=== PATIENT | female | born 1940 | race Caucasian/White ===

== ENCOUNTER 2017-06-20 16:03 | Emergency (ER) | payer MEDICARE, OTHER ==
[2017-06-20] MEDS ORDERED: Famotidine 20 MG/2 ML SDV IVPUSH ONE (16:21)
[2017-06-20] MEDS ORDERED: Lactated Ringers 1,000 ML IV ONE (16:21)
[2017-06-20] MEDS ORDERED: Ondansetron 4 MG/2 ML SDV IVPUSH ONE (16:21)
[2017-06-20] MEDS ORDERED: Pantoprazole 40 MG Vial IVPUSH ONE (16:21)
[2017-06-20 16:50] LABS: CHLORIDE,CL 105 mmol/L (98-107); SODIUM,NA 140 mmol/L (136-145)
[2017-06-20] MEDS: Sodium Chloride 0.9% 10 ML Syringe FLUSH PRN ×2 (16:54→17:26)
[2017-06-20] MEDS ORDERED: Ketorolac 30 MG/ML SDV IVPUSH ONE (17:03)
[2017-06-20] MEDS ORDERED: Tamsulosin 0.4 MG Cap.ER PO ONE (17:04)
--- NOTE | 2017-06-20 17:38 | EDM.PDOC ---
ED HPI GENERAL MEDICAL PROBLEM - General Chief Complaint: General Stated Complaint: back and flank bilat Time Seen by Provider: 06/20/17 16:05 Source of Information: Reports: Patient, Family ([id number]), Old Records ( [facility] chart/EMR) History Limitations: Reports: No Limitations - History of Present Illness INITIAL COMMENTS - FREE TEXT/NARRATIVE: Patient was brought to the emergency room via private automobile by her daughter -in-law for evaluation of 06/25 colic type symptoms, which started at noon today. Her symptoms are similar to previous episodes of her urolithiasis with sharp right CVA spasms radiating to the right inguinal region. Symptoms are associated with some mild nausea but no emesis or diaphoresis at this point. Patient did have some cheese and ham at lunch today at time of onset of the above symptoms, however no fatty food intolerance in the past. She did have a normal bowel movement earlier today. The patient has had some mild increased urinary frequency but no gross hematuria, dysuria, or other UTI symptoms. The patient denies any chest pain/pressure, heart flutter, dizziness, orthostasis, orthopnea, diaphoresis, paresthesias, recent decreased exercise tolerance, or any other anginal-type symptoms. The patient also denies any recent fever, cough , wheezing, dyspnea, etc.. No history of recent headaches, visual changes, diplopia, change in mental status, or other change in neurological status. She denies any medication noncompliance Onset: Today, Sudden Onset Date: 06/20/17 Onset Time: 12:00 Duration: Colic, Improving (To 01/23 on arrival) Location: Reports: Abdomen, Radiates to (Right inguinal region as above). Denies: Head, Face, Neck, Chest, Back, Pelvis, Upper Extremity, Left, Upper Extremity, Right, Lower Extremity, Left, Lower Extremity, Right Quality: Reports: Same as Previous Episode, Sharp, Stabbing Severity: Severe Improves with: Reports: None Worsens with: Reports: None Context: Reports: Other (As above) Associated Symptoms: Reports: Nausea/Vomiting (No emesis). 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 (see below) (None) Bilateral Flank Pain Score (Numeric/FACES): 5 (Mostly right CVA as above) - Related Data Allergies Allergy/AdvReac Type Severity Reaction Status Date / Time amoxicillin [From Augmentin] Allergy Nausea and Verified 06/20/17 17:48 Vomiting clavulanic acid Allergy Nausea and Verified 06/20/17 17:48 [From Augmentin] Vomiting Home Meds: Home Meds Albuterol [Proventil HFA] 2 puff INH Q4H PRN 06/20/17 [History] Diltiazem [Cardizem CD] 180 mg PO QPM #0 06/20/17 [Rx] Fluticasone Propionate [Flovent HFA 100 mcg] 2 puff IH BID 06/20/17 [History] Furosemide [Lasix] 40 mg PO DAILY PRN 06/20/17 [History] Losartan [Cozaar] 50 mg PO QAM #0 06/20/17 [Rx] Omeprazole Magnesium [Prilosec Otc] 40 mg PO DAILY 06/20/17 [History] Past Medical History HEENT History: Reports: Allergic Rhinitis, Cataract, Hard of Hearing, Impaired Vision, Other (See Below). Denies: Glaucoma, Macular Degeneration, Retinal Detachment Other HEENT History: She wears glasses, bilateral presbycusis with no current therapy Cardiovascular History: Reports: Heart Murmur, High Cholesterol, Hypertension. Denies: Afib, Aneurysm, Arrhythmia, Blood Clots/VTE/DVT, CAD, FL, PVD, Syncope Other Cardiovascular History: Aortic valve stenosis and mitral valve insufficiency by clinical exam, obesity with hyperlipidemia not currently treated with medications, dependent edema Respiratory History: Reports: Asthma, Bronchitis, Recurrent, COPD, Intubation, Previous. Denies: PE, Pneumonia, Recurrent, Pneumothorax, Sleep Apnea Gastrointestinal History: Reports: Cholelithiasis, Chronic Constipation, Colon Polyp, Diverticulosis, GERD, Other (See Below). Denies: Celiac Disease, Chronic Diarrhea, Fecal Incontinence, Gastritis, GI Bleed, Hepatitis, Inflammatory Bowel Disease, Irritable Bowel Syndrome, Jaundice, Pancreatitis, PUD Other Gastrointestinal History: History of recurrent colonic polyps including at time of last colonoscopy in February 2017 with unknown type of polyps present, history of colon cancer as below, resolved constipation after her partial colectomy Genitourinary History: Reports: Renal Calculus, Other (See Below). Denies: Acute Renal Failure, Chronic Renal Insuffiency, STD, Urinary Incontinence, UTI, Recurrent Other Genitourinary History: Recurrent urolithiasis side unknown however spontaneous passage with last right-sided 6 mm urolithiasis on 03/22/11 with secondary hydronephrosis and spontaneous passage, left-sided renal pelvic stone and bilateral benign renal cysts by CT scan in October 2016 FURNITURE SANDER History: Reports: . Denies: Dysfunctional Uterine Bleeding, Endometriosis, Fibroids, Spontaneous : 3 Para: 3 (Full term without complications during pregnancies or deliveries) LMP (Approximate): Menopausal (At about age 41) Musculoskeletal History: Reports: Arthritis, Back Pain, Chronic, Fracture, Neck Pain, Chronic, Osteoarthritis, Osteoporosis, Other (See Below). Denies: Amputation, Gout, RA, SLE Other Musculoskeletal History: C2 vertebral body fracture with C5 spinal process fracture secondary to trauma on 04/21/13, C5 spinal stenosis cervical spondylolisthesis Neurological History: Reports: None. Denies: Alzheimers Disease, Cerebral Aneurysms, CVA, Headaches, Chronic, Head Trauma, Migraines, MS, Neuropathy, Peripheral, Parkinson's, Seizure, TIA Psychiatric History: Reports: None. Denies: Abuse, Victim of, ADD, ADHD, Addiction, Anxiety, Depression, Psych Hospitalization(s), PTSD, Suicide Attempt , Suicidal Ideation Endocrine/Metabolic History: Reports: Obesity/BMI 30+, Osteoporosis. Denies: Diabetes, Type I, Hypothyroidism, IDDM Hematologic History: Reports: Anemia, Iron Deficiency. Denies: Blood Transfusion(s) Immunologic History: Reports: None. Denies: AIDS, HIV, SLE Oncologic (Cancer) History: Reports: Colon, Renal, Other (See Below). Denies: Basal Cell Carcinoma, Cervix, Hodgkin's Lymphoma, Leukemia, Lymphoma, Malignant Melanoma, Metastatic, Non-Hodgkin's Lymphoma, Squamous Cell Carcinoma, Uterine Other Oncologic History: Colon cancer in 2006 with partial colectomy but no radiation or chemotherapy Dermatologic History: Reports: None, Eczema. Denies: Psoriasis, Venous Stasis Dermatitis - Infectious Disease History Infectious Disease History: Reports: Chicken Pox, Mumps, Pertussis (Whooping Cough). Denies: C-Difficile, Measles, Meningitis, Mononucleosis, MRSA, Rubella , Scarlet Fever, Shingles, TB, VRE - Past Surgical History Head Surgeries/Procedures: Reports: None HEENT Surgical History: Reports: Cataract Surgery, Oral Surgery, Other (See Below). Denies: Adenoidectomy, Eye Surgery, Laser Surgery, LASIK, Myringotomy w Tube(s), Naso-Sinus Surgery, Tonsillectomy Other HEENT Surgeries/Procedures: Bilateral cataract surgery in about 2006, complete teeth extraction with complete upper and lower dentures Cardiovascular Surgical History: Reports: None. Denies: Varicose, Vascular Surgery Respiratory Surgical History: Reports: None. Denies: Thoracentesis GI Surgical History: Reports: Colon, Colonoscopy, Polypectomy, Other (See Below) . Denies: Appendectomy, Cholecystectomy, EGD, Hernia, Abdominal, Hernia, Inguinal, Hernia Repair/Other Other GI Surgeries/Procedures: Last colonoscopy in February 2017 with multiple polypectomies at that time, partial colectomy in 2012 secondary to colon cancer side unknown Female Surgical History: Reports: Other (See Below). Denies: Breast Biopsy, Section, D&C, Hysterectomy, Oophorectomy, Salpingo-Oophorectomy, Tubal Ligation Other Female Surgeries/Procedures: Cryotherapy of probable small left renal cancer lesion in 2014 Endocrine Surgical History: Reports: None. Denies: Thyroid Biopsy Neurological Surgical History: Reports: None. Denies: C-Spine, Discectomy, Laminectomy, Lumbar Spine, Spinal Fusion, Vertebroplasty Musculoskeletal Surgical History: Denies: Arthroscopic Procedure, Carpal Tunnel , Ganglion Cyst, Joint Replacement, Knee Replacement, ORIF, Shoulder Surgery Oncologic Surgical History: Reports: Other (See Below) Other Oncologic Surgeries/Procedures: As above Dermatological Surgical History: Reports: None - Past Imaging History Past Imaging History: Reports: CAT Scan (CT of the abdomen and pelvis with contrast in October 2016, CT of the C-spine on 04/21/13, CT of the abdomen and pelvis on 03/22/11 with stone protocol), DEXA Scan (04/18/12) Social & Family History - Tobacco Use Smoking Status *Q: Never Smoker Tobacco Use Within Last Twelve Months: No Used Tobacco, but Quit: No Smoking Cessation Information Provided To Patient: No Second Hand Smoke Exposure: No Second Hand Smoke Education Provided: No - Caffeine Use Caffeine Use: Reports: Coffee (3 cups per day), Soda (3 sodas per week). Denies : Energy Drinks, Tea - Alcohol Use Alcohol Use History: Yes Days Per Week of Alcohol Use: 0 (No previous DWIs, problems with alcohol abuse, etc.) Number of Drinks Per Day: 1 (Usually wine for holidays) Total Drinks Per Week: 0 Alcohol Use Frequency: Socially - Recreational Drug Use Recreational Drug Use: No Drug Use in Last 12 Months: No Recreational Drug Type: Denies: Amphetamines (Speed), Cocaine, Heroin, Inhalants (Glues, Solvents, Aerosols), LSD (Acid), Marijuana/Hashish, Methamphetamine, Morphine - Living Situation & Occupation Living situation: Reports: (1965, 2 children living), with Family ( ) Occupation: Employed (Part-time teacher) ED ROS GENERAL - Review of Systems Review Of Systems: See Below Constitutional: Denies: Fever, Malaise, Weakness, Fatigue, Night Sweats, Diaphoresis, Decreased Appetite, Weight Loss, Weight Gain HEENT: Reports: Glasses, Hearing Loss (Chronic). Denies: Ear Pain, Eye Discharge, Eye Pain, Rhinitis, Throat Pain, Throat Swelling, Vertigo, Vision Change Respiratory: Reports: No Symptoms. Denies: Shortness of Breath, Wheezing, Pleuritic Chest Pain, Cough Cardiovascular: Reports: No Symptoms. Denies: Chest Pain, Blood Pressure Problem, Claudication, Edema, Lightheadedness, Orthopnea, Palpitations, PND, Syncope Endocrine: Reports: No Symptoms. Denies: Fatigue GI/Abdominal: Reports: Abdominal Pain (Colic as above), Nausea. Denies: Anorexia, Black Stool, Bloody Stool, Constipation, Diarrhea, Decreased Appetite , Difficulty Swallowing, Distension, Flatus, Hematemesis, Hematochezia, Melena, Mucous in Stool, Stool Incontinence, Vomiting : Reports: Frequency, Pain (Colic as above radiating into the right inguinal region). Denies: Discharge, Dysuria, Flank Pain, Hematuria, Incontinence, Urgency, Urinary Retention Musculoskeletal: Reports: No Symptoms. Denies: Neck Pain, Shoulder Pain, Arm Pain, Back Pain, Leg Pain Skin: Reports: No Symptoms. Denies: Jaundice, Pallor, Diaphoresis, Bruising, Rash, Wound Neurological: Reports: No Symptoms. Denies: Confusion, Dizziness, Numbness, Paresthesia, Syncope, Tingling, Weakness Psychiatric: Reports: No Symptoms. Denies: Agitation, Anxiety, Confusion, Depression Hematologic/Lymphatic: Reports: No Symptoms Immunologic: Reports: No Symptoms ED EXAM, GENERAL - Physical Exam Exam: See Below Exam Limited By: No Limitations General Appearance: Alert, WD/WN, No Apparent Distress Eye Exam: Bilateral Eye: EOMI, Normal Inspection (No nystagmus), PERRL Ears: Normal External Exam, Normal Canal, Normal TMs, Hearing Loss (Moderate bilateral presbycusis). No: Hearing Grossly Normal Nose: Normal Inspection, Normal Mucosa, No Blood Throat/Mouth: Normal Inspection, Normal Lips, Normal Gums, Normal Oropharynx, Normal Voice, No Airway Compromise. No: Normal Teeth (Complete dentures uppers and lowers), Dysphagia, Perioral Cyanosis Head: Atraumatic, Normocephalic. No: Facial Swelling, Facial Tenderness, Sinus Tenderness Neck: Normal Inspection, Supple, Non-Tender, Full Range of Motion, Carotid Bruit (Mild bilateral carotid bruits versus transmitted heart sounds). No: Lymphadenopathy (L), Lymphadenopathy (R), Thyromegaly Respiratory/Chest: No Respiratory Distress, Lungs Clear, Normal Breath Sounds, No Accessory Muscle Use, Chest Non-Tender. No: Pleural Rub, Retractions Cardiovascular: Normal Peripheral Pulses, Regular Rate, Rhythm, No Edema, No Gallop, No JVD, No Rub, Systolic Murmur (2/6 BETTYE of the aortic and mitral valves ). No: Gallop/S3, Gallop/S4, Friction Rub Peripheral Pulses: 2+: Radial (L), Radial (R), Dorsalis Pedis (L), Dorsalis Pedis (R) GI/Abdominal: Normal Bowel Sounds, Soft, Non-Tender, No Organomegaly, No Distention, No Abnormal Bruit, No Mass, Pelvis Stable, Other (Obese). No: Guarding, Rebound (Female) Exam: Deferred Rectal (Female) Exam: Normal Exam, Normal Rectal Tone, Heme - Stool, Hemorrhoids. No: Tenderness (No Hieu space tenderness) Back Exam: Normal Inspection, Full Range of Motion. No: CVA Tenderness (L), CVA Tenderness (R), Muscle Spasm, Paraspinal Tenderness Extremities: Normal Inspection, Normal Range of Motion, Non-Tender, No Pedal Edema, Normal Capillary Refill. No: Kerry's Sign Neurological: Alert, Oriented, CN II-XII Intact, Normal Cognition, Normal Gait, Normal Reflexes (Negative Babinski's), No Motor/Sensory Deficits Psychiatric: Normal Affect, Normal Mood Skin Exam: Warm, Dry, Intact, Normal Color, No Rash. No: Diaphoretic, Ecchymosis, Jaundice, Petechiae, Wound/Incision Lymphatic: No Adenopathy Course - Vital Signs Last Recorded V/S: Last Vital Signs Temp 36.7 C 06/20/17 16:20 Pulse 69 06/20/17 18:30 Resp 20 06/20/17 16:20 BP 166/67 H 06/20/17 18:30 Pulse Ox 98 06/20/17 16:20 Vital Signs - 24 hr 06/20/17 06/20/17 06/20/17 16:20 16:43 16:49 Temperature [ 36.7 C Oral] Pulse, 74 73 Peripheral [ Left Brachial] Respiratory 20 Rate Blood Pressure 220/79 H 186/63 H 188/67 H [Left Upper Arm ] O2 Sat by Pulse 98 Oximetry 06/20/17 06/20/17 06/20/17 17:21 17:40 18:04 Temperature [ Oral] Pulse, 71 Peripheral [ Left Brachial] Respiratory Rate Blood Pressure 170/81 H 186/69 H 172/63 H [Left Upper Arm ] O2 Sat by Pulse Oximetry 06/20/17 06/20/17 18:15 18:30 Temperature [ Oral] Pulse, 69 Peripheral [ Left Brachial] Respiratory Rate Blood Pressure 163/70 H 166/67 H [Left Upper Arm ] O2 Sat by Pulse Oximetry - Orders/Labs/Meds Orders: Active Orders 24 hr Category Date Time Status Peripheral IV Care [RC] . DIRECTED Care 06/20/17 16:21 Active Nothing Per Oral Diet [DIET] Diet 06/20/17 Breakfast Active Abdomen Pelvis wo Cont [CT] Stat Exams 06/20/17 16:22 Taken CULTURE URINE [RM] Stat Lab 06/20/17 16:20 Received H PYLORI STOOL ANTIGEN [MREF] Urgent Lab 06/20/17 16:21 Uncollected Sodium Chloride 0.9% [Saline Flush] Med 06/20/17 16:21 Active 10 ml FLUSH ASDIRECTED PRN Obtain Past Medical Record [OM.PC] Urgent Oth 06/20/17 16:21 Active Peripheral IV Insertion Adult [OM.PC] Stat Oth 06/20/17 16:21 Ordered Resuscitation Status Stat Resus Stat 06/20/17 16:21 Ordered Medication Orders Sodium Chloride (Saline Flush) 10 ml FLUSH ASDIRECTED PRN PRN Reason: Keep Vein Open Last Admin: 06/20/17 17:26 Dose: 10 ml Admin: 06/20/17 16:54 Dose: 10 ml Labs: Laboratory Tests 06/20/17 06/20/17 06/20/17 Range/Units 16:20 16:30 16:30 WBC 10.0 (4.0-10.2) K/uL RBC 4.72 (3.77-5.09) M/uL Hgb 12.7 (11.7-15.5) g/dL Hct 40.5 (34.0-46.0) % MCV 85.8 (84.0-98.0) fL MCH 26.9 L (28.2-33.3) pg MCHC 31.4 L (31.7-36.0) g/dL RDW 15.2 H (11.2-14.1) % Plt Count 314 (150-350) K/uL Neut % (Auto) 65.6 (45.0-80.0) % Lymph % (Auto) 20.3 (10.0-50.0) % [place] % (Auto) 9.2 (2.0-14.0) % Eos % (Auto) 4.5 (0.0-5.0) % Baso % (Auto) 0.4 (0.0-2.0) % Neut # (Auto) 6.54 (1.40-7.00) K/uL Lymph # (Auto) 2.02 (0.50-3.50) K/uL [place] # (Auto) 0.92 (0.00-1.00) K/uL Eos # (Auto) 0.45 (0.00-0.50) K/uL Baso # (Auto) 0.04 (0.00-0.20) K/uL PT (9.8-11.7) SEC INR APTT (23.5-30.0) SEC Sodium (136-145) mmol/L Potassium (3.5-5.1) mmol/L Chloride (98-107) mmol/L Carbon Dioxide (21.0-32.0) mmol/L BUN (7-18) mg/dL Creatinine (0.51-1.17) mg/dL Est Cr Clr Drug Dosing mL/min Estimated GFR (MDRD) mL/min Glucose (74-106) mg/dL Lactic Acid (0.4-2.0) mmol/L Uric Acid (2.6-7.2) mg/dL Calcium (8.5-10.1) mg/dL Magnesium (1.8-2.4) mg/dL Total Bilirubin (0.2-1.0) mg/dL AST (15-37) U/L ALT (12-78) U/L Alkaline Phosphatase (46-116) IU/L Total Protein (6.4-8.2) g/dL Albumin (3.4-5.0) g/dL Amylase 77 (25-115) U/L Lipase (73-393) U/L Specimen Type Urincc Urine Color Light yellow Urine Appearance Clear Urine pH 7.0 (5.0-9.0) Ur Specific [place] 1.015 (1.005-1.030) Urine Protein Negative (NEGATIVE) mg/dL Urine Glucose (UA) Negative (NEGATIVE) mg/dL Urine Ketones Negative (NEGATIVE) mg/dL Urine Occult Blood Trace-intact H (NEGATIVE) Urine Nitrite Negative (NEGATIVE) Urine Bilirubin Negative (NEGATIVE) Urine Urobilinogen 0.2 (0.2-1.0) E.U./dL Ur Leukocyte Esterase Negative (NEGATIVE) Urine RBC Not seen /HPF Urine WBC Not seen /HPF Ur Epithelial Cells Rare /LPF Urine Bacteria Rare (NONE TO FEW) /HPF 06/20/17 06/20/17 06/20/17 Range/Units 16:30 16:30 16:30 WBC (4.0-10.2) K/uL RBC (3.77-5.09) M/uL Hgb (11.7-15.5) g/dL Hct (34.0-46.0) % MCV (84.0-98.0) fL MCH (28.2-33.3) pg MCHC (31.7-36.0) g/dL RDW (11.2-14.1) % Plt Count (150-350) K/uL Neut % (Auto) (45.0-80.0) % Lymph % (Auto) (10.0-50.0) % [place] % (Auto) (2.0-14.0) % Eos % (Auto) (0.0-5.0) % Baso % (Auto) (0.0-2.0) % Neut # (Auto) (1.40-7.00) K/uL Lymph # (Auto) (0.50-3.50) K/uL [place] # (Auto) (0.00-1.00) K/uL Eos # (Auto) (0.00-0.50) K/uL Baso # (Auto) (0.00-0.20) K/uL PT 10.4 (9.8-11.7) SEC INR 1.0 APTT 27.0 (23.5-30.0) SEC Sodium 140 (136-145) mmol/L Potassium 4.1 (3.5-5.1) mmol/L Chloride 105 (98-107) mmol/L Carbon Dioxide 29.8 (21.0-32.0) mmol/L BUN 18 (7-18) mg/dL Creatinine 0.83 (0.51-1.17) mg/dL Est Cr Clr Drug Dosing 48.44 mL/min Estimated GFR (MDRD) > 60 mL/min Glucose 117 H (74-106) mg/dL Lactic Acid 0.9 (0.4-2.0) mmol/L Uric Acid 2.8 (2.6-7.2) mg/dL Calcium 9.1 (8.5-10.1) mg/dL Magnesium 2.0 (1.8-2.4) mg/dL Total Bilirubin 0.2 (0.2-1.0) mg/dL AST 14 L (15-37) U/L ALT 15 (12-78) U/L Alkaline Phosphatase 104 (46-116) IU/L Total Protein 7.7 (6.4-8.2) g/dL Albumin 3.5 (3.4-5.0) g/dL Amylase (25-115) U/L Lipase 270 (73-393) U/L Specimen Type Urine Color Urine Appearance Urine pH (5.0-9.0) Ur Specific [place] (1.005-1.030) Urine Protein (NEGATIVE) mg/dL Urine Glucose (UA) (NEGATIVE) mg/dL Urine Ketones (NEGATIVE) mg/dL Urine Occult Blood (NEGATIVE) Urine Nitrite (NEGATIVE) Urine Bilirubin (NEGATIVE) Urine Urobilinogen (0.2-1.0) E.U./dL Ur Leukocyte Esterase (NEGATIVE) Urine RBC /HPF Urine WBC /HPF Ur Epithelial Cells /LPF Urine Bacteria (NONE TO FEW) /HPF Urine specimen sent up for culture and sensitivity Microbiology 06/20/17 16:21 Stool Occult Blood (GREG) - Final Stool / Feces NEGATIVE OCCULT BLOOD Meds: Medications Generic Name Dose Route Start Last Admin Trade Name Freq PRN Reason Stop Dose Admin Sodium Chloride 10 ml 06/20/17 16:21 06/20/17 17:26 Saline Flush FLUSH 10 ml ASDIRECTED PRN Administration Keep Vein Open Discontinued Medications Generic Name Dose Route Start Last Admin Trade Name Freq PRN Reason Stop Dose Admin Famotidine 40 mg 06/20/17 16:21 06/20/17 16:44 Pepcid IVPUSH 06/20/17 16:22 40 mg ONETIME ONE Administration Lactated Ringer's 1,000 mls @ 999 mls/hr 06/20/17 16:21 06/20/17 16:44 Ringers, Lactated IV 06/20/17 17:21 999 mls/hr .BOLUS ONE Administration Ketorolac Tromethamine 30 mg 06/20/17 17:03 06/20/17 17:22 Toradol IVPUSH 06/20/17 17:04 30 mg ONETIME ONE Administration Ondansetron HCl 4 mg 06/20/17 16:21 06/20/17 16:44 Zofran IVPUSH 06/20/17 16:22 4 mg ONETIME ONE Administration Pantoprazole Sodium 40 mg 06/20/17 16:21 06/20/17 16:44 Protonix Iv IVPUSH 06/20/17 16:22 40 mg ONETIME ONE Administration Tamsulosin HCl 0.8 mg 06/20/17 17:04 06/20/17 17:23 Flomax PO 06/20/17 17:05 0.8 mg ONETIME ONE Administration - Radiology Interpretation Free Text/Narrative:: Telephone consultation at 18:20 hours with the radiology department at [facility] with verbal report of noncontrast CT of the abdomen and pelvis using stone protocol. Negative report for acute right-sided urolithiasis or nephrolithiasis with small nonobstructing left renal pelvic stone and bilateral renal cysts compared to last CT scan in October 2016 CT Results Date: 06/20/17 CT Results Time: 18:20 Departure - Departure Time of Disposition: 18:50 Disposition: Home, Self-Care 01 Condition: Good Clinical Impression: Peptic reflux disease Hypertension Qualifiers: Hypertension type: essential hypertension Qualified Code(s): I10 - Essential ( primary) hypertension Osteoarthritis Qualifiers: Osteoarthritis location: multiple joints Osteoarthritis type: primary Qualified Code(s): M15.0 - Primary generalized (osteo)arthritis Hyperlipidemia Qualifiers: Hyperlipidemia type: unspecified Qualified Code(s): E78.5 - Hyperlipidemia, unspecified Asthma Qualifiers: Asthma severity: moderate Asthma persistence: unspecified Asthma complication type: uncomplicated Qualified Code(s): J45.909 - Unspecified asthma, uncomplicated Urolithiasis Qualifiers: Urinary calculus location: kidney Qualified Code(s): N20.0 - Calculus of kidney - Discharge Information Instructions: Ketorolac injection, Ondansetron injection, Renal Colic, Easy-to- Read, Pantoprazole injection, Famotidine injection Referrals: Amalia Jones PA [Primary Care Provider] - Forms: ED Department Discharge Additional Instructions: 1. Followup with your regular provider in 7 days as directed. 2. Tylenol 650 mg by mouth every 4 hours and/or OTC ibuprofen 2-3 tabs by mouth every 6 hours with food as directed./needed with next dose in 6 hours as needed secondary to medications given in the emergency room. 3. Strain all urine and bring stone to your regular provider or this facility as directed for further stone analysis. 4. [place] diet including encouragement of oral fluids such as sports drinks, etc. for 24-48 hours as directed. Advance to regular diet as tolerated thereafter. 5. Continue to observe your blood pressure closely through your regular provider. Stagger blood pressure medications as per discharge instructions with both medications to be taken this evening, however. 6. Discuss possible referral to an pattern grader cutter by your regular provider secondary to your hearing loss - Problem List & Annotations (1) Urolithiasis SNOMED Code(s): 52587740 Code(s): N20.9 - URINARY CALCULUS, UNSPECIFIED Status: Acute Priority: High Current Visit: Yes Annotation/Comment:: History of bilateral urolithiasis with right-sided colic at this time. Patient will strain her urine and bring stone in for analysis. Close follow-up by her regular provider as per discharge instructions. Her symptoms were significantly improved prior to discharge with overall good results to IV Toradol and Flomax as above. Qualifiers: Urinary calculus location: kidney Qualified Code(s): N20.0 - Calculus of kidney (2) Hypertension SNOMED Code(s): 52372540 Code(s): I10 - ESSENTIAL (PRIMARY) HYPERTENSION Status: Chronic Priority : Medium Current Visit: Yes Annotation/Comment:: Blood pressure somewhat elevated in the emergency room likely secondary to discomfort. Continue to observe closely by her regular provider. Starting tomorrow the patient will stagger her blood pressure medications as per discharge instructions Note when necessary Lasix for occasional dependent edema Qualifiers: Hypertension type: essential hypertension Qualified Code(s): I10 - Essential (primary) hypertension (3) Asthma SNOMED Code(s): 097838620 Code(s): J45.909 - UNSPECIFIED ASTHMA, UNCOMPLICATED Status: Chronic Priority: Medium Current Visit: Yes Annotation/Comment:: Stable by history with recent fever or bronchitic type symptoms Qualifiers: Asthma severity: moderate Asthma persistence: unspecified Asthma complication type: uncomplicated Qualified Code(s): J45.909 - Unspecified asthma, uncomplicated (4) Hyperlipidemia SNOMED Code(s): 63394567 Code(s): E78.5 - HYPERLIPIDEMIA, UNSPECIFIED Status: Chronic Priority: Medium Current Visit: Yes Annotation/Comment:: Apparent recent lipid panel with regular provider suggesting further treatment by diet. Weight loss in moderation advised Qualifiers: Hyperlipidemia type: unspecified Qualified Code(s): E78.5 - Hyperlipidemia , unspecified (5) Osteoarthritis SNOMED Code(s): 325389102 Code(s): M19.90 - UNSPECIFIED OSTEOARTHRITIS, UNSPECIFIED SITE Status: Acute Current Visit: Yes Annotation/Comment:: Stable by history with normal uric acid level today and no history of gout Qualifiers: Osteoarthritis location: multiple joints Osteoarthritis type: primary Qualified Code(s): M15.0 - Primary generalized (osteo)arthritis (6) Peptic reflux disease SNOMED Code(s): 19220324 Code(s): K21.9 - GASTRO-ESOPHAGEAL REFLUX DISEASE WITHOUT ESOPHAGITIS Status: Chronic Priority: Medium Current Visit: Yes Annotation/Comment:: Stable by history. High-dose IV Pepcid and Protonix given as GI prophylaxis - Problem List Review Problem List Initiated/Reviewed/Updated: Yes - My Orders Last 24 Hours: My Active Orders 06/20/17 16:20 CULTURE URINE [RM] Stat 06/20/17 16:21 Peripheral IV Care [RC] . DIRECTED H PYLORI STOOL ANTIGEN [MREF] Urgent Sodium Chloride 0.9% [Saline Flush] 10 ml FLUSH ASDIRECTED PRN Obtain Past Medical Record [OM.PC] Urgent Peripheral IV Insertion Adult [OM.PC] Stat Resuscitation Status Stat 06/20/17 16:22 Abdomen Pelvis wo Cont [CT] Stat 06/20/17 Breakfast Nothing Per Oral Diet [DIET] - Assessment/Plan Last 24 Hours: My Active Orders 06/20/17 16:20 CULTURE URINE [RM] Stat 06/20/17 16:21 Peripheral IV Care [RC] . DIRECTED H PYLORI STOOL ANTIGEN [MREF] Urgent Sodium Chloride 0.9% [Saline Flush] 10 ml FLUSH ASDIRECTED PRN Obtain Past Medical Record [OM.PC] Urgent Peripheral IV Insertion Adult [OM.PC] Stat Resuscitation Status Stat 06/20/17 16:22 Abdomen Pelvis wo Cont [CT] Stat 06/20/17 Breakfast Nothing Per Oral Diet [DIET] Assessment:: As above Plan: As above. Extensive precautions were given to the patient and her son, who are in agreement with the treatment plan. See Patient Instructions for further treatment and plan.
[2017-06-20 19:13] VITALS: BP 166/67
== END 2017-06-20 18:50 | disposition home or self-care (01) ==
LOC: LL.ED 16:03
DX: N20.0 Calculus of kidney (principal); K21.9 Gastro-esophageal reflux disease without esophagitis; J45.909 Unspecified asthma, uncomplicated; I10 Essential (primary) hypertension; M15.0 Primary generalized (osteo)arthritis; E78.5 Hyperlipidemia, unspecified; Z88.1 Allergy status to other antibiotic agents; Z87.440 Personal history of urinary (tract) infections; Z79.899 Other long term (current) drug therapy
CPT/HCPCS: 36415; 74176; 80053; 81001; 82150; 82272; 83605; 83690; 83735; 84550; 85025; 85610; 85730; 87086; 96361; 96374; 96375; 99285; A9270; C9113; J1885; J2405; J7050; J7120; 99284; S0028

== ENCOUNTER 2019-03-06 21:15 | Emergency (ER) | payer MEDICARE, OTHER ==
[2019-03-06] MEDS ORDERED: Sodium Chloride 0.9% 10 ML Syringe FLUSH PRN (21:33)
--- NOTE | 2019-03-06 21:33 | EDM.PDOC ---
ED HPI GENERAL MEDICAL PROBLEM - General Chief Complaint: General Stated Complaint: left flank pain Time Seen by Provider: 03/06/19 21:30 Source of Information: Reports: Patient, Family ( ), Old Records ([facility] chart/EMR) History Limitations: Reports: No Limitations - History of Present Illness INITIAL COMMENTS - FREE TEXT/NARRATIVE: The patient was brought to the emergency room via private automobile by her for evaluation of 9/10 left CVA tenderness associated with some dysuria with symptoms starting about 7 AM this morning. Symptoms are similar to her previous episodes of urolithiasis with fever of 99.9 prior to arrival. Patient did take 1 Aleve tablet earlier this morning with last dose at 19:00 hours this evening. She has had some chills, mild diaphoresis, colic, and some nausea however no emesis to this point. No recent history of other abdominal pain, heartburn, diarrhea, melena, gross hematochezia, or any food intolerance, including fatty foods, etc. with a normal bowel movement earlier this morning. The patient denies any chest pain/pressure, heart flutter, dizziness, orthostasis, orthopnea, diaphoresis, paresthesias, recent decreased exercise tolerance, or any other anginal-type symptoms despite being noncompliant with her Lasix for more than the last 6 months. The patient also denies any recent cough, wheezing, dyspnea, etc. with the patient using her inhaler this morning. Onset: Today, Gradual Onset Date: 03/06/19 Onset Time: 07:00 Duration: Getting Worse, Intermittent Location: Reports: Abdomen (CVA), Back (Unspecific mild radiation to the back), Radiates to (As above). Denies: Head, Face, Neck, Chest, Pelvis, Upper Extremity, Left, Upper Extremity, Right, Lower Extremity, Left, Lower Extremity , Right Quality: Reports: Ache, Same as Previous Episode, Throbbing Severity: Severe Improves with: Reports: None Worsens with: Reports: None Context: Reports: Other (As above). Denies: Sick Contact, Trauma Associated Symptoms: Reports: Fever/Chills, Nausea/Vomiting. Denies: Confusion , Chest Pain, Cough, Diaphoresis, Headaches, Loss of Appetite, Malaise, Rash, Seizure, Shortness of Breath, Syncope, Weakness Treatments CARE ADMINISTRATIVE TECH: Reports: NSAIDS (As above), Other Medication(s) (As above) Left Back Pain Score (Numeric/FACES): 9 - Related Data Allergies Allergy/AdvReac Type Severity Reaction Status Date / Time amoxicillin [From Augmentin] Allergy Nausea and Verified 03/06/19 21:17 Vomiting clavulanic acid Allergy Nausea and Verified 03/06/19 21:17 [From Augmentin] Vomiting Home Meds: Home Meds Albuterol [Proventil HFA] 2 puff INH Q4H PRN 06/20/17 [History] Diltiazem [Cardizem CD] 180 mg PO QPM #0 06/20/17 [Rx] Fluticasone Propionate [Flovent HFA 100 mcg] 2 puff IH BID 06/20/17 [History] Furosemide [Lasix] 40 mg PO DAILY PRN 06/20/17 [History] Losartan [Cozaar] 50 mg PO QAM #0 06/20/17 [Rx] Omeprazole Magnesium [Prilosec Otc] 40 mg PO DAILY 06/20/17 [History] Furosemide 40 mg PO DAILY #1 tablet 03/06/19 [Rx] Naproxen Sodium [Aleve] 220 mg PO Q12H PRN 03/06/19 [History] Potassium Chloride 10 meq PO BID #14 capsule.er 03/06/19 [Rx] levoFLOXacin [Levaquin] 500 mg PO BEDTIME #5 tab 03/06/19 [Rx] Past Medical History HEENT History: Reports: Allergic Rhinitis, Cataract, Hard of Hearing, Impaired Vision, Other (See Below). Denies: Glaucoma, Macular Degeneration, Retinal Detachment Other HEENT History: She wears glasses, bilateral presbycusis with no current therapy Cardiovascular History: Reports: Heart Murmur, High Cholesterol, Hypertension. Denies: Afib, Aneurysm, Arrhythmia, Blood Clots/VTE/DVT, CAD, Cardiomyopathy, Heart Failure, ME, PVD, Syncope Other Cardiovascular History: Aortic valve stenosis and mitral valve insufficiency by clinical exam, obesity with hyperlipidemia not currently treated with medications, dependent edema Respiratory History: Reports: Asthma, Bronchitis, Recurrent, COPD, Intubation, Previous. Denies: Intubation, Difficult, PE, Pneumonia, Recurrent, Pneumothorax , Sleep Apnea, SOB, TB Gastrointestinal History: Reports: Cholelithiasis, Chronic Constipation, Colon Polyp, Diverticulosis, GERD, Other (See Below). Denies: Celiac Disease, Chronic Diarrhea, Fecal Incontinence, Gastritis, GI Bleed, Hepatitis, Inflammatory Bowel Disease, Irritable Bowel Syndrome, Jaundice, Pancreatitis, PUD Other Gastrointestinal History: History of recurrent colonic polyps including at time of last colonoscopy in February 2017 with unknown type of polyps present, history of colon cancer as below, resolved constipation after her partial colectomy Genitourinary History: Reports: Renal Calculus, Other (See Below). Denies: Acute Renal Failure, Chronic Renal Insuffiency, STD, Urinary Incontinence, UTI, Recurrent Other Genitourinary History: Left renal pelvic nephrolithiasis and extensive bilateral renal cysts by CT scan on 06/20/17 and October 2016 with no repeat stone passage to this point. Previous recurrent urolithiasis side unknown however spontaneous passage with last right-sided 6 mm urolithiasis on 03/22/11 with secondary hydronephrosis and spontaneous passage. PHARMACY RESIDENT History: Reports: . Denies: Dysfunctional Uterine Bleeding, Endometriosis, Fibroids, Spontaneous : 3 Para: 3 LMP (Approximate): Other (See Below) Other PHARMACY RESIDENT History: Full term without complications during pregnancies or deliveries. Menopause at about age 41. Musculoskeletal History: Reports: Arthritis, Back Pain, Chronic, Fracture, Neck Pain, Chronic, Osteoarthritis, Osteoporosis, Other (See Below). Denies: Amputation, Gout, RA, SLE Other Musculoskeletal History: C2 vertebral body fracture with C5 spinal process fracture secondary to trauma on 04/21/13, C5 spinal stenosis and cervical spondylolisthesis. Kyphosis with moderate lumbar scoliosis. Neurological History: Reports: None. Denies: Alzheimers Disease, Cerebral Aneurysms, CVA, Headaches, Chronic, Head Trauma, Migraines, MS, Neuropathy, Peripheral, Parkinson's, Seizure, TIA Psychiatric History: Reports: None. Denies: Abuse, Victim of, ADD, ADHD, Addiction, Anxiety, Depression, Psych Hospitalization(s), PTSD, Suicide Attempt , Suicidal Ideation Endocrine/Metabolic History: Reports: Obesity/BMI 30+, Osteopenia, Osteoporosis. Denies: Diabetes, Gestational, Diabetes, Type I, Diabetes, Type II, Diabetes Mellitus, Type 3c, Hypothyroidism, IDDM Hematologic History: Reports: Anemia, Iron Deficiency. Denies: Blood Transfusion(s) Immunologic History: Reports: None. Denies: AIDS, HIV, SLE Oncologic (Cancer) History: Reports: Colon, Renal, Other (See Below). Denies: Basal Cell Carcinoma, Breast, Cervix, Hodgkin's Lymphoma, Leukemia, Lymphoma, Malignant Melanoma, Metastatic, Non-Hodgkin's Lymphoma, Ovarian, Squamous Cell Carcinoma, Uterine Other Oncologic History: Colon cancer in 2006 with partial colectomy but no radiation or chemotherapy. Possible renal cancer as below. Dermatologic History: Reports: Eczema. Denies: Psoriasis, Venous Stasis Dermatitis - Infectious Disease History Infectious Disease History: Reports: Chicken Pox, Mumps, Pertussis (Whooping Cough). Denies: C-Difficile, Measles, Meningitis, Mononucleosis, MRSA, Rubella , Scarlet Fever, Shingles, TB, VRE - Past Surgical History Head Surgeries/Procedures: Reports: None HEENT Surgical History: Reports: Cataract Surgery, Oral Surgery, Other (See Below). Denies: Adenoidectomy, Eye Surgery, Laser Surgery, LASIK, Myringotomy w Tube(s), Naso-Sinus Surgery, Tonsillectomy Other HEENT Surgeries/Procedures: Bilateral cataract surgery in about 2006, complete teeth extraction with complete upper and lower dentures Cardiovascular Surgical History: Reports: None. Denies: Varicose, Vascular Surgery Respiratory Surgical History: Reports: None. Denies: Thoracentesis GI Surgical History: Reports: Colon, Colonoscopy, Polypectomy, Other (See Below) . Denies: Appendectomy, Cholecystectomy, EGD, Hernia, Abdominal, Hernia, Inguinal, Hernia Repair/Other Other GI Surgeries/Procedures: Last colonoscopy in February 2017 with multiple polypectomies at that time, partial colectomy in 2012 secondary to colon cancer side unknown Female Surgical History: Reports: Other (See Below). Denies: Breast Biopsy, Section, D&C, Hysterectomy, Oophorectomy, Salpingo-Oophorectomy, Tubal Ligation Other Female Surgeries/Procedures: Cryotherapy of probable small left renal cancer lesion in 2014 Endocrine Surgical History: Reports: None. Denies: Thyroid Biopsy Neurological Surgical History: Reports: None. Denies: C-Spine, Discectomy, Laminectomy, Lumbar Spine, Sacral Spine, Spinal Fusion, Thoracic Spine, Vertebroplasty Musculoskeletal Surgical History: Reports: Joint Replacement, Knee Replacement, Other (See Below). Denies: Arthroscopic Procedure, Carpal Tunnel, Ganglion Cyst , ORIF, Shoulder Replacement, Shoulder Surgery Other Musculoskeletal Surgeries/Procedures:: Total Knee arthroplasty in April 2018. Oncologic Surgical History: Reports: Other (See Below) Other Oncologic Surgeries/Procedures: As above Dermatological Surgical History: Reports: None - Past Imaging History Past Imaging History: Reports: CAT Scan (CT scan of the abdomen and pelvis without contrast using stone protocol on 06/20/17. CT of the abdomen and pelvis with contrast in October 2016, CT of the C-spine on 04/21/13, CT of the abdomen and pelvis on 03/22/11 with stone protocol), DEXA Scan (04/18/12) Social & Family History - Tobacco Use Smoking Status *Q: Never Smoker Tobacco Use Within Last Twelve Months: No Used Tobacco, but Quit: No Smoking Cessation Information Provided To Patient: No Second Hand Smoke Exposure: No Second Hand Smoke Education Provided: No - Caffeine Use Caffeine Use: Reports: Coffee (3 cups per day), Soda (3 sodas per week). Denies : Energy Drinks, Tea - Alcohol Use Alcohol Use History: Yes Days Per Week of Alcohol Use: 0 Number of Drinks Per Day: 1 Number of Drinks Per Day Comment: Usually wine for holidays. No previous DWIs, problems with alcohol abuse, etc. Total Drinks Per Week: 0 Alcohol Use in Last Twelve Months: Yes Alcohol Use Frequency: Rarely - Recreational Drug Use Recreational Drug Use: No Drug Use in Last 12 Months: No Recreational Drug Type: Denies: Amphetamines (Speed), Cocaine, Heroin, Inhalants (Glues, Solvents, Aerosols), LSD (Acid), Marijuana/Hashish, Methamphetamine, Morphine, Oxycodone - Living Situation & Occupation Living situation: Reports: (1965, 2 children living), with Family ( ) Occupation: Employed (Part-time teacher) ED ROS GENERAL - Review of Systems Review Of Systems: ROS reveals no pertinent complaints other than HPI. ED EXAM, GENERAL - Physical Exam Exam: See Below Exam Limited By: No Limitations General Appearance: Alert, WD/WN, No Apparent Distress Eye Exam: Bilateral Eye: EOMI, Normal Inspection (No nystagmus. Patient wearing glasses), PERRL Ears: Normal External Exam, Normal Canal, Normal TMs, Hearing Loss (Mild bilateral presbycusis). No: Hearing Grossly Normal Nose: Normal Inspection, Normal Mucosa, No Blood Throat/Mouth: Normal Lips, Normal Gums, Normal Oropharynx, Normal Voice, No Airway Compromise. No: Normal Teeth (Complete dentures uppers and lowers) Head: Atraumatic, Normocephalic. No: Facial Swelling, Facial Tenderness, Sinus Tenderness Neck: Supple, Non-Tender, Full Range of Motion, Carotid Bruit (Mild bilateral carotid bruits versus transmitted heart sounds). No: Lymphadenopathy (L), Lymphadenopathy (R), Thyromegaly Respiratory/Chest: No Respiratory Distress, No Accessory Muscle Use, Chest Non- Tender, Rales (Mild bilateral basilar), Rhonchi (Occasional diffuse bilateral), Wheezing (Occasional). No: Pleural Rub, Retractions Cardiovascular: Normal Peripheral Pulses, No Gallop, No JVD, Tachycardia ( Regular rhythm), Systolic Murmur (Somewhat progressive 23/6 BETTYE of the aortic and mitral valves). No: No Edema (Dependent edema as below), No Murmur, No Rub , Diastolic Murmur, Gallop/S3, Gallop/S4, Friction Rub Peripheral Pulses: 2+: Radial (L), Radial (R), Dorsalis Pedis (L), Dorsalis Pedis (R) GI/Abdominal: Normal Bowel Sounds, Soft, Non-Tender, No Organomegaly, No Distention, No Abnormal Bruit, No Mass, Pelvis Stable. No: Guarding (Female) Exam: Deferred Rectal (Female) Exam: Deferred Back Exam: CVA Tenderness (L) (Mild), Decreased Range of Motion (Stable chronic) , Other (Mild kyphosis with moderate lumbar scoliosis). No: CVA Tenderness (R) , Muscle Spasm, Paraspinal Tenderness, Vertebral Tenderness Extremities: Normal Range of Motion, Non-Tender, Normal Capillary Refill, Pedal Edema (+1+2 bilateral pitting pedal/pretibial edema left greater than right). No: No Pedal Edema, Kerry's Sign Neurological: Alert, Oriented, CN II-XII Intact, Normal Cognition, Normal Gait, Normal Reflexes (Negative Babinski's), No Motor/Sensory Deficits Psychiatric: Normal Affect, Normal Mood Skin Exam: Warm, Dry, Intact, Normal Color, No Rash, Stud(s) (Earrings bilaterally). No: Diaphoretic, Erythema, Petechiae, Wound/Incision Lymphatic: No Adenopathy EKG INTERPRETATION EKG Date: 03/06/19 Time: 22:04 Rhythm: Other (Sinus tachycardia) Rate (Beats/Min): 113 Johnson: Normal (Neutral Cardiac axis) P-Wave: Enlarged (Moderate diffuse biphasic P waves) QRS: Normal (0.07 seconds) ST-T: Normal (Nonspecific ST changes) QT: Normal [place]/PQ Interval: 0.14 seconds represent a short [place] interval with no delta waves noted Comparison: NA - No Prior EKG EKG Interpretation Comments: 1. No acute ischemic changes 2. Left atrial enlargement 3. Short [place] interval 4. Sinus tachycardia Course - Vital Signs Text/Narrative:: Vital Signs - 24 hr 03/06/19 03/06/19 03/06/19 21:19 22:14 22:30 Temperature [ 37.7 C Oral] Pulse, 98 112 H 102 H Peripheral [ Left Pulse Oximetry] Respiratory 32 H 28 H 24 H Rate Blood Pressure 136/54 L 106/47 L 106/34 L [Left Upper Arm ] O2 Sat by Pulse 95 92 L 92 L Oximetry 03/06/19 03/06/19 22:46 23:20 Temperature [ 37.9 C 37.1 C Oral] Pulse, 101 H 103 H Peripheral [ Left Pulse Oximetry] Respiratory 25 H 24 H Rate Blood Pressure 100/42 L 103/54 L [Left Upper Arm ] O2 Sat by Pulse 92 L 95 Oximetry Last Recorded V/S: Last Vital Signs Temp 37.1 C 03/06/19 23:20 Pulse 103 H 03/06/19 23:20 Resp 24 H 03/06/19 23:20 BP 103/54 L 03/06/19 23:20 Pulse Ox 95 03/06/19 23:20 - Orders/Labs/Meds Orders: Active Orders 24 hr Category Date Time Status Cardiac Monitoring [RC] . DIRECTED Care 03/06/19 21:36 Active EKG Documentation Completion [RC] ASDIRECTED Care 03/06/19 21:47 Active Peripheral IV Care [RC] . DIRECTED Care 03/06/19 21:34 Active RT Aerosol Therapy [RC] ASDIRECTED Care 03/06/19 21:41 Active Abdomen Series w Chest 1V [CR] Stat Exams 03/06/19 21:34 Taken CULTURE BLOOD [BC] Stat Lab 03/06/19 21:50 Received CULTURE BLOOD [BC] Stat Lab 03/06/19 22:10 Received CULTURE URINE [RM] Stat Lab 03/06/19 21:34 Received Blood Culture x2 Reflex Set [OM.PC] Urgent Oth 03/06/19 21:34 Ordered Obtain Past Medical Record [OM.PC] Urgent Oth 03/06/19 21:34 Active Peripheral IV Insertion Adult [OM.PC] Stat Oth 03/06/19 21:34 Ordered Resuscitation Status Stat Resus Stat 03/06/19 21:33 Ordered Labs: Laboratory Tests 03/06/19 03/06/19 03/06/19 Range/Units 21:34 21:50 21:50 WBC 2.3 L (4.0-10.2) K/uL RBC 4.70 (3.77-5.09) M/uL Hgb 11.6 L (11.7-15.5) g/dL Hct 37.9 (34.0-46.0) % MCV 80.6 L D (84.0-98.0) fL MCH 24.7 L (28.2-33.3) pg MCHC 30.6 L (31.7-36.0) g/dL RDW 16.1 H (11.2-14.1) % Plt Count 222 D (150-350) K/uL Neut % (Auto) 91.4 H (45.0-80.0) % Lymph % (Auto) 7.3 L (10.0-50.0) % Guthrie % (Auto) 0.4 L (2.0-14.0) % Eos % (Auto) 0.9 (0.0-5.0) % Baso % (Auto) 0.0 (0.0-2.0) % Neut # (Auto) 2.12 (1.40-7.00) K/uL Lymph # (Auto) 0.17 L (0.50-3.50) K/uL Guthrie # (Auto) 0.01 (0.00-1.00) K/uL Eos # (Auto) 0.02 (0.00-0.50) K/uL Baso # (Auto) 0.00 (0.00-0.20) K/uL PT (9.5-12.0) SEC INR APTT (21.0-31.3) SEC Sodium (136-145) mmol/L Potassium (3.5-5.1) mmol/L Chloride (98-107) mmol/L Carbon Dioxide (21.0-32.0) mmol/L BUN (7-18) mg/dL Creatinine (0.51-1.17) mg/dL Est Cr Clr Drug Dosing mL/min Estimated GFR (MDRD) mL/min Glucose (74-106) mg/dL Lactic Acid (0.4-2.0) mmol/L Uric Acid (2.6-7.2) mg/dL Calcium (8.5-10.1) mg/dL Magnesium (1.8-2.4) mg/dL Total Bilirubin (0.2-1.0) mg/dL AST (15-37) U/L ALT (12-78) U/L Alkaline Phosphatase (46-116) IU/L Creatine Kinase (26-308) U/L Creatine Kinase Index (0.0-2.5) % CK-MB (CK-2) (0.00-3.60) ng/mL Troponin I (0.000-0.056) ng/mL NT-Pro-B Natriuret Pep (0-125) pg/mL Total Protein (6.4-8.2) g/dL Albumin (3.4-5.0) g/dL Amylase 63 (25-115) U/L Lipase (73-393) U/L Specimen Type Urinvoid Urine Color Light yellow Urine Appearance Cloudy Urine pH 7.0 (5.0-9.0) Ur Specific Carson 1.010 (1.005-1.030) Urine Protein 100 H (NEGATIVE) mg/dL Urine Glucose (UA) Negative (NEGATIVE) mg/dL Urine Ketones Negative (NEGATIVE) mg/dL Urine Occult Blood Moderate H (NEGATIVE) Urine Nitrite Negative (NEGATIVE) Urine Bilirubin Negative (NEGATIVE) Urine Urobilinogen 0.2 (0.2-1.0) E.U./dL Ur Leukocyte Esterase Moderate H (NEGATIVE) Urine RBC 50-75 H /HPF Urine WBC >100 H /HPF Ur Epithelial Cells Few /LPF Urine Bacteria Moderate H (NONE TO FEW) /HPF 03/06/19 03/06/19 03/06/19 Range/Units 21:50 21:50 21:50 WBC (4.0-10.2) K/uL RBC (3.77-5.09) M/uL Hgb (11.7-15.5) g/dL Hct (34.0-46.0) % MCV (84.0-98.0) fL MCH (28.2-33.3) pg MCHC (31.7-36.0) g/dL RDW (11.2-14.1) % Plt Count (150-350) K/uL Neut % (Auto) (45.0-80.0) % Lymph % (Auto) (10.0-50.0) % Guthrie % (Auto) (2.0-14.0) % Eos % (Auto) (0.0-5.0) % Baso % (Auto) (0.0-2.0) % Neut # (Auto) (1.40-7.00) K/uL Lymph # (Auto) (0.50-3.50) K/uL Guthrie # (Auto) (0.00-1.00) K/uL Eos # (Auto) (0.00-0.50) K/uL Baso # (Auto) (0.00-0.20) K/uL PT 10.6 (9.5-12.0) SEC INR 1.0 APTT 25.2 (21.0-31.3) SEC Sodium 140 (136-145) mmol/L Potassium 3.8 (3.5-5.1) mmol/L Chloride 105 (98-107) mmol/L Carbon Dioxide 23.7 (21.0-32.0) mmol/L BUN 21 H (7-18) mg/dL Creatinine 1.32 H (0.51-1.17) mg/dL Est Cr Clr Drug Dosing 28.23 mL/min Estimated GFR (MDRD) 39 mL/min Glucose 111 H (74-106) mg/dL Lactic Acid 3.0 H (0.4-2.0) mmol/L Uric Acid 3.9 (2.6-7.2) mg/dL Calcium 8.8 (8.5-10.1) mg/dL Magnesium 1.6 L (1.8-2.4) mg/dL Total Bilirubin 0.6 (0.2-1.0) mg/dL AST 25 (15-37) U/L ALT 20 (12-78) U/L Alkaline Phosphatase 127 H (46-116) IU/L Creatine Kinase (26-308) U/L Creatine Kinase Index (0.0-2.5) % CK-MB (CK-2) (0.00-3.60) ng/mL Troponin I (0.000-0.056) ng/mL NT-Pro-B Natriuret Pep (0-125) pg/mL Total Protein 7.5 (6.4-8.2) g/dL Albumin 3.4 (3.4-5.0) g/dL Amylase (25-115) U/L Lipase 173 (73-393) U/L Specimen Type Urine Color Urine Appearance Urine pH (5.0-9.0) Ur Specific Carson (1.005-1.030) Urine Protein (NEGATIVE) mg/dL Urine Glucose (UA) (NEGATIVE) mg/dL Urine Ketones (NEGATIVE) mg/dL Urine Occult Blood (NEGATIVE) Urine Nitrite (NEGATIVE) Urine Bilirubin (NEGATIVE) Urine Urobilinogen (0.2-1.0) E.U./dL Ur Leukocyte Esterase (NEGATIVE) Urine RBC /HPF Urine WBC /HPF Ur Epithelial Cells /LPF Urine Bacteria (NONE TO FEW) /HPF 03/06/19 Range/Units 21:50 WBC (4.0-10.2) K/uL RBC (3.77-5.09) M/uL Hgb (11.7-15.5) g/dL Hct (34.0-46.0) % MCV (84.0-98.0) fL MCH (28.2-33.3) pg MCHC (31.7-36.0) g/dL RDW (11.2-14.1) % Plt Count (150-350) K/uL Neut % (Auto) (45.0-80.0) % Lymph % (Auto) (10.0-50.0) % Guthrie % (Auto) (2.0-14.0) % Eos % (Auto) (0.0-5.0) % Baso % (Auto) (0.0-2.0) % Neut # (Auto) (1.40-7.00) K/uL Lymph # (Auto) (0.50-3.50) K/uL Guthrie # (Auto) (0.00-1.00) K/uL Eos # (Auto) (0.00-0.50) K/uL Baso # (Auto) (0.00-0.20) K/uL PT (9.5-12.0) SEC INR APTT (21.0-31.3) SEC Sodium (136-145) mmol/L Potassium (3.5-5.1) mmol/L Chloride (98-107) mmol/L Carbon Dioxide (21.0-32.0) mmol/L BUN (7-18) mg/dL Creatinine (0.51-1.17) mg/dL Est Cr Clr Drug Dosing mL/min Estimated GFR (MDRD) mL/min Glucose (74-106) mg/dL Lactic Acid (0.4-2.0) mmol/L Uric Acid (2.6-7.2) mg/dL Calcium (8.5-10.1) mg/dL Magnesium (1.8-2.4) mg/dL Total Bilirubin (0.2-1.0) mg/dL AST (15-37) U/L ALT (12-78) U/L Alkaline Phosphatase (46-116) IU/L Creatine Kinase 75 (26-308) U/L Creatine Kinase Index 0.7 (0.0-2.5) % CK-MB (CK-2) 0.50 (0.00-3.60) ng/mL Troponin I 0.011 (0.000-0.056) ng/mL NT-Pro-B Natriuret Pep 601 H (0-125) pg/mL Total Protein (6.4-8.2) g/dL Albumin (3.4-5.0) g/dL Amylase (25-115) U/L Lipase (73-393) U/L Specimen Type Urine Color Urine Appearance Urine pH (5.0-9.0) Ur Specific Carson (1.005-1.030) Urine Protein (NEGATIVE) mg/dL Urine Glucose (UA) (NEGATIVE) mg/dL Urine Ketones (NEGATIVE) mg/dL Urine Occult Blood (NEGATIVE) Urine Nitrite (NEGATIVE) Urine Bilirubin (NEGATIVE) Urine Urobilinogen (0.2-1.0) E.U./dL Ur Leukocyte Esterase (NEGATIVE) Urine RBC /HPF Urine WBC /HPF Ur Epithelial Cells /LPF Urine Bacteria (NONE TO FEW) /HPF Urine specimen set up for culture and sensitivity Blood Cultures 2 were also collected Meds: Medications Discontinued Medications Generic Name Dose Route Start Last Admin Trade Name Freq PRN Reason Stop Dose Admin Acetaminophen 650 mg 03/06/19 21:41 03/06/19 22:06 Tylenol PO 03/06/19 21:42 650 mg NOW ONE Administration Albuterol/Ipratropium 3 ml 03/06/19 21:41 03/06/19 22:07 Duoneb 3.0-0.5 Mg/3 Ml NEB 03/06/19 21:42 3 ml ONETIME ONE Administration Budesonide 0.5 mg 03/06/19 21:41 03/06/19 22:07 Pulmicort NEB 03/06/19 21:42 0.5 mg ONETIME ONE Administration Levofloxacin/Dextrose 500 mg/ 100 mls @ 100 mls/hr 03/06/19 22:05 03/06/19 22 :20 Premix IV 03/06/19 23:04 100 mls/hr ONETIME ONE Administration Ondansetron HCl 4 mg 03/06/19 21:36 03/06/19 21:49 Zofran IVPUSH 03/06/19 21:37 4 mg ONETIME ONE Administration Sodium Chloride 10 ml 03/06/19 21:33 03/06/19 22:26 Saline Flush FLUSH 10 ml ASDIRECTED PRN Administration Keep Vein Open - Radiology Interpretation Free Text/Narrative:: Scale Attendant shows sinus tachycardia with heart rate in the 112 with no ectopy or arrhythmia. Acute abdominal x-rays shows evidence of moderate pulmonary obstructive disease with mild cardiomegaly and mild to moderate aortic valve calcification. Mild pulmonary hypertension and/or centralized CHF with no pulmonary infiltrates. Moderate scoliosis in the lumbar spine with moderate osteoarthritic changes including moderate spurs. Moderate stool with no free air, ileus, obstruction, fluid levels, etc. Departure - Departure Time of Disposition: 23:44 Disposition: Home, Self-Care 01 Condition: Good Clinical Impression: Peptic reflux disease, Cardiac murmur, Microcytic anemia, Renal insufficiency, Hypomagnesemia Osteoarthritis Qualifiers: Osteoarthritis location: multiple joints Osteoarthritis type: primary Qualified Code(s): M15.0 - Primary generalized (osteo)arthritis Urolithiasis Qualifiers: Urinary calculus location: kidney Qualified Code(s): N20.0 - Calculus of kidney Hypertension Qualifiers: Hypertension type: essential hypertension Qualified Code(s): I10 - Essential ( primary) hypertension Asthma Qualifiers: Asthma severity: moderate Asthma persistence: unspecified Asthma complication type: uncomplicated Qualified Code(s): J45.909 - Unspecified asthma, uncomplicated UTI (urinary tract infection) Qualifiers: Urinary tract infection type: acute cystitis Hematuria presence: without hematuria Qualified Code(s): N30.00 - Acute cystitis without hematuria Leukopenia Qualifiers: Leukopenia type: neutropenia Neutropenia type: unspecified Qualified Code(s): D70.9 - Neutropenia, unspecified - Discharge Information *PRESCRIPTION DRUG MONITORING PROGRAM REVIEWED*: Not Applicable *COPY OF PRESCRIPTION DRUG MONITORING REPORT IN PATIENT AMARI: Not Applicable Prescriptions: Furosemide 40 mg PO DAILY #1 tablet levoFLOXacin [Levaquin] 500 mg PO BEDTIME #5 tab Potassium Chloride 10 meq PO BID #14 capsule.er Instructions: Urinary Tract Infection, Adult, [id number] Referrals: Maryana Cote PA-C [Primary Care Provider] - Forms: ED Department Discharge Additional Instructions: 1. Followup with your regular provider in 10 days as directed for reevaluation and recommended repeat CBC, basic metabolic panel, magnesium level, TIBC panel, ferritin level, vitamin B 12 level, UA, and urine for culture and sensitivity. Bring these discharge instructions with you to that visit. 2. Tylenol 650 mg by mouth every 4 hours when necessary as directed. 3. Urine tests should be repeated at follow up visit with possible repeat urine culture,etc. at that time. Today's urine culture is pending with results in about 2-3 days. We will call you, if we need to change your therapy. 4. Immediately after this visit verify that your cellular telephone's voicemail has been activated and is empty. Also verify that your home telephone 's answering machine is operating properly and has space to receive messages. Note that it is sometimes necessary for us to be able to contact you at a later date to discuss your medical care. 5. Please remember that we are ALWAYS here for you and want to answer any questions you may have. Feel free to call the hospital any time and we call you back [facility]. 6. Discuss with your regular provider at follow-up possibility of scheduling an echocardiogram as recommended secondary to your mildly progressive heart murmurs 7. Use your albuterol inhaler at least 4 times a day with every 4 hours as needed until follow-up with your regular provider 8. Don't forget to fill additional prescriptions for your new potassium chloride and levofloxacin at your pharmacy in addition to taking the samples given to you today. 9. Compliance with all medications, including taking your Lasix on a regular rather than an as-needed basis as discussed - Problem List & Annotations (1) UTI (urinary tract infection) SNOMED Code(s): 10417108 Code(s): N39.0 - URINARY TRACT INFECTION, SITE NOT SPECIFIED Status: Acute Priority: High Onset Date: ~03/06/19 Annotation/Comment:: Probable left sided nephritis. Urine specimen set up for culture and sensitivity and blood cultures also obtained. No evidence of sepsis as below. High-dose IV Levaquin given in the emergency room with #5 emergency room with planned ten-day course of medical therapy. Patient did not wish to be hospitalized at this time. Qualifiers: Urinary tract infection type: acute cystitis Hematuria presence: without hematuria Qualified Code(s): N30.00 - Acute cystitis without hematuria (2) Urolithiasis SNOMED Code(s): 82875503, 613118290 Code(s): N20.9 - URINARY CALCULUS, UNSPECIFIED Status: Chronic Priority: Medium Annotation/Comment:: Despite history of known recurrent urolithiasis and possible colic type symptoms no direct evidence of recurrence of his colic at this time based on today's exam. Symptoms appear to be more related to her UTI and cystitis as above. Consider further workup depending on her clinical course as per discharge instructions. Qualifiers: Urinary calculus location: kidney Qualified Code(s): N20.0 - Calculus of kidney (3) Osteoarthritis SNOMED Code(s): 895396701 Code(s): M19.90 - UNSPECIFIED OSTEOARTHRITIS, UNSPECIFIED SITE Status: Chronic Priority: Medium Annotation/Comment:: Stable by history with no history of gout and once again normal uric acid level today as at time of emergency room visit on 06/20/17. Qualifiers: Osteoarthritis location: multiple joints Osteoarthritis type: primary Qualified Code(s): M15.0 - Primary generalized (osteo)arthritis (4) Asthma SNOMED Code(s): 195269190 Code(s): J45.909 - UNSPECIFIED ASTHMA, UNCOMPLICATED Status: Chronic Priority: Medium Annotation/Comment:: Stable by history with some mild dyspnea , rhonchi and wheezing today. Triple nebulizer treatment given in the emergency room with some improvement in symptoms. Compliance with inhaler encouraged. No direct evidence of acute bacterial bronchitis, etc., although cardiac asthma may be a factor in light of her noncompliance with Lasix therapy recently as above. Lasix therapy to be reinitiated with the patient having tablets at home. Additional potassium chloride prescribed, #10 emergency room tablets with additional #14 prescription. Note additional COPD. Qualifiers: Asthma severity: moderate Asthma persistence: unspecified Asthma complication type: uncomplicated Qualified Code(s): J45.909 - Unspecified asthma, uncomplicated (5) Hyperlipidemia SNOMED Code(s): 72916630 Code(s): E78.5 - HYPERLIPIDEMIA, UNSPECIFIED Status: Chronic Priority: Medium Annotation/Comment:: No current medical therapy with weight loss in moderation advised. She may benefit from a statin. Close follow-up by regular provider. Qualifiers: Hyperlipidemia type: unspecified Qualified Code(s): E78.5 - Hyperlipidemia , unspecified (6) Hypertension SNOMED Code(s): 90928187 Code(s): I10 - ESSENTIAL (PRIMARY) HYPERTENSION Status: Chronic Priority : Medium Annotation/Comment:: Occasional mild nonsymptomatic hypotension in the emergency room. Otherwise under good control. Note additional Lasix therapy with patient previously noncompliant with this medication. Continue to observe closely by her regular providers. No evidence of clinical sepsis with mild tachycardia secondary to fever. Lactic acid was normal. Qualifiers: Hypertension type: essential hypertension Qualified Code(s): I10 - Essential (primary) hypertension (7) Peptic reflux disease SNOMED Code(s): 475748095 Code(s): K21.9 - GASTRO-ESOPHAGEAL REFLUX DISEASE WITHOUT ESOPHAGITIS Status: Chronic Priority: Medium Annotation/Comment:: Stable by history with current medical therapy. (8) Cardiac murmur SNOMED Code(s): 84814592 Code(s): R01.1 - CARDIAC MURMUR, UNSPECIFIED Status: Chronic Priority: High Annotation/Comment:: Highly progressive moderate aortic valve stenosis and mitral valve insufficiency by clinical exam. Echocardiogram is advisable. Note dependent edema. She will discuss this further with her regular provider. No chest pain or anginal type symptoms. (9) Hypomagnesemia SNOMED Code(s): 739571198 Code(s): E83.42 - HYPOMAGNESEMIA Status: Acute Priority: Medium Onset Date: 03/06/19 Annotation/Comment:: Observe for now. She may need magnesium supplementation secondary to reinitiated Lasix therapy. Continue to observe closely by regular provider as per discharge instructions. (10) Leukopenia SNOMED Code(s): 58547670, 965653534 Code(s): D72.819 - DECREASED WHITE BLOOD CELL COUNT, UNSPECIFIED Status: Acute Priority: Medium Onset Date: 03/06/19 Annotation/Comment:: Nonspecific leukopenia of unknown etiology. Close follow-up by regular provider Qualifiers: Leukopenia type: neutropenia Neutropenia type: unspecified Qualified Code (s): D70.9 - Neutropenia, unspecified (11) Microcytic anemia SNOMED Code(s): 589211531 Code(s): D50.9 - IRON DEFICIENCY ANEMIA, UNSPECIFIED Status: Acute Priority: Medium Onset Date: 03/06/19 Annotation/Comment:: Iron studies, etc. follow-up as per discharge instructions. Note new renal insufficiency. No evidence of GI bleed, etc. (12) Renal insufficiency SNOMED Code(s): 571011126, 879584598 Code(s): N28.9 - DISORDER OF KIDNEY AND URETER, UNSPECIFIED Status: Acute Priority: High Onset Date: 03/06/19 Annotation/Comment:: Newly diagnosed. Observe for now. Close follow-up by regular provider with further workup depending on her clinical course. Reinitiate Lasix with caution as above. - Problem List Review Problem List Initiated/Reviewed/Updated: Yes - My Orders Last 24 Hours: My Active Orders 03/06/19 21:33 Resuscitation Status Stat 03/06/19 21:34 Peripheral IV Care [RC] . DIRECTED Abdomen Series w Chest 1V [CR] Stat CULTURE URINE [RM] Stat Blood Culture x2 Reflex Set [OM.PC] Urgent Obtain Past Medical Record [OM.PC] Urgent Peripheral IV Insertion Adult [OM.PC] Stat 03/06/19 21:36 Cardiac Monitoring [RC] . DIRECTED 03/06/19 21:41 RT Aerosol Therapy [RC] ASDIRECTED 03/06/19 21:47 EKG Documentation Completion [RC] ASDIRECTED 03/06/19 21:50 CULTURE BLOOD [BC] Stat 03/06/19 22:10 CULTURE BLOOD [BC] Stat - Assessment/Plan Last 24 Hours: My Active Orders 03/06/19 21:33 Resuscitation Status Stat 03/06/19 21:34 Peripheral IV Care [RC] . DIRECTED Abdomen Series w Chest 1V [CR] Stat CULTURE URINE [RM] Stat Blood Culture x2 Reflex Set [OM.PC] Urgent Obtain Past Medical Record [OM.PC] Urgent Peripheral IV Insertion Adult [OM.PC] Stat 03/06/19 21:36 Cardiac Monitoring [RC] . DIRECTED 03/06/19 21:41 RT Aerosol Therapy [RC] ASDIRECTED 03/06/19 21:47 EKG Documentation Completion [RC] ASDIRECTED 03/06/19 21:50 CULTURE BLOOD [BC] Stat 03/06/19 22:10 CULTURE BLOOD [BC] Stat Assessment:: As above Plan: As above. Extensive precautions were given to the patient and her , who are in agreement with the treatment plan. See Patient Instructions for further treatment and plan.
[2019-03-06] MEDS ORDERED: Ondansetron 4 MG/2 ML SDV IVPUSH ONE (21:36)
[2019-03-06] MEDS ORDERED: Acetaminophen 325 MG Tab PO ONE (21:41)
[2019-03-06] MEDS ORDERED: Albuterol/Ipratropium 3.0-0.5 MG/3 ML Neb Soln NEB ONE (21:41)
[2019-03-06] MEDS ORDERED: Budesonide 0.5 MG/2 ML Neb Susp NEB ONE (21:41)
[2019-03-06] MEDS ORDERED: Levofloxacin/Dextrose 5%-Water 500 MG in Premix Bag 1 BAG IV ONE (22:05)
[2019-03-06 23:29] VITALS: BP 103/54
== END 2019-03-06 23:44 | disposition home or self-care (01) ==
LOC: LL.ED 21:15
DX: N30.00 Acute cystitis without hematuria (principal); M15.0 Primary generalized (osteo)arthritis; N20.0 Calculus of kidney; D70.9 Neutropenia, unspecified; E78.5 Hyperlipidemia, unspecified; R01.1 Cardiac murmur, unspecified; E83.42 Hypomagnesemia; D50.9 Iron deficiency anemia, unspecified; N28.9 Disorder of kidney and ureter, unspecified; E78.00 Pure hypercholesterolemia, unspecified; I10 Essential (primary) hypertension; J45.909 Unspecified asthma, uncomplicated; Z88.1 Allergy status to other antibiotic agents; Z88.8 Allergy status to other drugs, medicaments and biological substances; Z79.899 Other long term (current) drug therapy; K21.9 Gastro-esophageal reflux disease without esophagitis
CPT/HCPCS: 36415; 74022; 80053; 81001; 82150; 82550; 82553; 83605; 83690; 83735; 83880; 84484; 84550; 85025; 85610; 85730; 87040; 87086; 93005; 93010; 94640; 96365; 96375; 99283-25; 99284; A4217; A9270-GY; J1956; J2405; J7620-GY

== ENCOUNTER 2019-09-15 13:57 | Inpatient (IN) | payer MEDICARE, OTHER ==
[2019-09-15] MEDS ORDERED: Famotidine 20 MG/2 ML SDV IVPUSH ONE (13:59)
--- NOTE | 2019-09-15 13:59 | EDM.PDOC ---
ED HPI GENERAL MEDICAL PROBLEM - General Chief Complaint: Respiratory Problem Stated Complaint: Cough Time Seen by Provider: 09/15/19 13:59 Source of Information: Reports: Patient, Old Records ([facility] chart/EMR) History Limitations: Reports: No Limitations - History of Present Illness INITIAL COMMENTS - FREE TEXT/NARRATIVE: The patient was brought to the emergency room via private automobile by her for evaluation of a chronic refractory nonproductive cough which has been present for more than one week. She denies known exposure to infection and did get her influenza booster this year. The patient also denies any recent fever, wheezing, dyspnea, etc.. The patient denies any chest pain/pressure, heart flutter, dizziness, orthostasis, orthopnea, diaphoresis, paresthesias, recent decreased exercise tolerance, or any other anginal-type symptoms. No recent history of abdominal pain, heartburn, nausea, diarrhea, melena, gross hematochezia, or any food intolerance, including fatty foods, etc.. She denies any gross hematuria, colic, or other UTI symptoms. Note that her symptoms have been refractory to OTC Zicam with no other OTC cold or cough preparations. The patient denies any pain or discomfort. Onset: Gradual Duration: Week(s): (As above) Location: Reports: Other (No pain) Quality: Reports: Same as Previous Episode Severity: Moderate (Cough) Improves with: Reports: None Worsens with: Reports: None Context: Reports: Other (As above). Denies: Sick Contact, Trauma Associated Symptoms: Reports: Cough. Denies: Confusion, Chest Pain, cough w sputum, Diaphoresis, Fever/Chills, Headaches, Loss of Appetite, Malaise, Nausea/ Vomiting, Seizure, Shortness of Breath, Syncope, Weakness Treatments DISTRIBUTOR ADVERTISING MATERIAL: Reports: Other Medication(s) (As above) - Related Data Allergies Allergy/AdvReac Type Severity Reaction Status Date / Time amoxicillin [From Augmentin] Allergy Nausea and Verified 09/15/19 14:24 Vomiting clavulanic acid Allergy Nausea and Verified 09/15/19 14:24 [From Augmentin] Vomiting Home Meds: Home Meds Albuterol [Proventil HFA] 2 puff INH Q4H PRN 06/20/17 [History] Fluticasone Propionate [Flovent HFA 100 mcg] 2 puff IH BID 06/20/17 [History] Furosemide [Lasix] 40 mg PO DAILY PRN 06/20/17 [History] Diltiazem [Cardizem CD] 180 mg PO BEDTIME 09/15/19 [History] Losartan [Cozaar] 50 mg PO QAM 09/15/19 [History] Omeprazole 20 mg PO DAILY 09/15/19 [History] Past Medical History HEENT History: Reports: Allergic Rhinitis, Cataract, Hard of Hearing, Impaired Vision, Other (See Below). Denies: Glaucoma, Macular Degeneration, Retinal Detachment Other HEENT History: She wears glasses, bilateral presbycusis with no current therapy Cardiovascular History: Reports: Heart Murmur, High Cholesterol, Hypertension. Denies: Afib, Aneurysm, Arrhythmia, Blood Clots/VTE/DVT, CAD, Cardiomyopathy, Heart Failure, MS, PVD, Syncope Other Cardiovascular History: Aortic valve stenosis and mitral valve insufficiency by clinical exam, obesity with hyperlipidemia not currently treated with medications, dependent edema Respiratory History: Reports: Asthma, Bronchitis, Recurrent, COPD, Intubation, Previous, Other (See Below). Denies: Intubation, Difficult, PE, Pneumonia, Recurrent, Pneumothorax, Sleep Apnea, SOB, TB Other Respiratory History: 1.2 cm left lower lobe pulmonary nodule by CT scan on 10/19/16. Gastrointestinal History: Reports: Cholelithiasis, Chronic Constipation, Colon Polyp, Diverticulosis, GERD, Hiatal Hernia, Other (See Below). Denies: Celiac Disease, Chronic Diarrhea, Fecal Incontinence, Gastritis, GI Bleed, Hepatitis, Inflammatory Bowel Disease, Irritable Bowel Syndrome, Jaundice, Pancreatitis, PUD Other Gastrointestinal History: History of recurrent colonic polyps including at time of last colonoscopy in February 2017 with unknown type of polyps present, history of colon cancer as below, resolved constipation after her partial colectomy Genitourinary History: Reports: Renal Calculus, Other (See Below). Denies: Acute Renal Failure, Chronic Renal Insuffiency, STD, Urinary Incontinence, UTI, Recurrent Other Genitourinary History: Left renal pelvic nephrolithiasis and extensive bilateral renal cysts by CT scan on 06/20/17 and October 2016 with no repeat stone passage to this point. Previous recurrent urolithiasis side unknown however spontaneous passage with last right-sided 6 mm urolithiasis on 03/22/11 with secondary hydronephrosis and spontaneous passage. AUTOMOTIVE ARTIST History: Reports: . Denies: Dysfunctional Uterine Bleeding, Endometriosis, Fibroids, Spontaneous : 3 Para: 3 LMP (Approximate): Other (See Below) Other AUTOMOTIVE ARTIST History: Full term without complications during pregnancies or deliveries. Menopause at about age 41. Musculoskeletal History: Reports: Arthritis, Back Pain, Chronic, Fracture, Neck Pain, Chronic, Osteoarthritis, Osteoporosis, Other (See Below). Denies: Amputation, Gout, RA, SLE Other Musculoskeletal History: C2 vertebral body fracture with C5 spinal process fracture secondary to trauma on 04/21/13, C5 spinal stenosis and cervical spondylolisthesis. Kyphosis with moderate lumbar scoliosis. Neurological History: Reports: None. Denies: Alzheimers Disease, Cerebral Aneurysms, CVA, Headaches, Chronic, Head Trauma, Migraines, MS, Neuropathy, Peripheral, Parkinson's, Seizure, TIA Psychiatric History: Reports: None. Denies: Abuse, Victim of, ADD, ADHD, Addiction, Anxiety, Depression, Psych Hospitalization(s), PTSD, Suicide Attempt , Suicidal Ideation Endocrine/Metabolic History: Reports: Obesity/BMI 30+, Osteopenia, Osteoporosis. Denies: Diabetes, Gestational, Diabetes, Type I, Diabetes, Type II, Diabetes Mellitus, Type 3c, Hypothyroidism, IDDM Hematologic History: Reports: Anemia, Iron Deficiency. Denies: Blood Transfusion(s) Immunologic History: Reports: None. Denies: AIDS, HIV, SLE Oncologic (Cancer) History: Reports: Colon, Renal, Other (See Below). Denies: Basal Cell Carcinoma, Breast, Cervix, Hodgkin's Lymphoma, Leukemia, Lymphoma, Malignant Melanoma, Metastatic, Non-Hodgkin's Lymphoma, Ovarian, Squamous Cell Carcinoma, Uterine Other Oncologic History: Colon cancer in 2006 with partial colectomy but no radiation or chemotherapy. Possible renal cancer as below. Dermatologic History: Reports: Eczema. Denies: Psoriasis, Venous Stasis Dermatitis - Infectious Disease History Infectious Disease History: Reports: Chicken Pox, Mumps, Pertussis (Whooping Cough). Denies: C-Difficile, Measles, Meningitis, Mononucleosis, MRSA, Rubella , Scarlet Fever, Shingles, TB, VRE - Past Surgical History Head Surgeries/Procedures: Reports: None HEENT Surgical History: Reports: Cataract Surgery, Oral Surgery, Other (See Below). Denies: Adenoidectomy, Eye Surgery, Laser Surgery, LASIK, Myringotomy w Tube(s), Naso-Sinus Surgery, Tonsillectomy Other HEENT Surgeries/Procedures: Bilateral cataract surgery in about 2006, complete teeth extraction with complete upper and lower dentures Cardiovascular Surgical History: Reports: None. Denies: Varicose, Vascular Surgery Respiratory Surgical History: Reports: None. Denies: Thoracentesis GI Surgical History: Reports: Colon, Colonoscopy, Polypectomy, Other (See Below) . Denies: Appendectomy, Cholecystectomy, EGD, Hernia, Abdominal, Hernia, Inguinal, Hernia Repair/Other Other GI Surgeries/Procedures: Last colonoscopy in February 2017 with multiple polypectomies at that time, partial colectomy in 2012 secondary to colon cancer side unknown Female Surgical History: Reports: Other (See Below). Denies: Breast Biopsy, Section, D&C, Hysterectomy, Oophorectomy, Salpingo-Oophorectomy, Tubal Ligation Other Female Surgeries/Procedures: Cryotherapy of probable small left renal cancer lesion in 2014 Endocrine Surgical History: Reports: None. Denies: Thyroid Biopsy Neurological Surgical History: Reports: None. Denies: C-Spine, Discectomy, Laminectomy, Lumbar Spine, Sacral Spine, Spinal Fusion, Thoracic Spine, Vertebroplasty Musculoskeletal Surgical History: Reports: Joint Replacement, Knee Replacement, Other (See Below). Denies: Arthroscopic Procedure, Carpal Tunnel, Ganglion Cyst , ORIF, Shoulder Replacement, Shoulder Surgery Other Musculoskeletal Surgeries/Procedures:: Total Knee arthroplasty in April 2018. Oncologic Surgical History: Reports: Other (See Below) Other Oncologic Surgeries/Procedures: As above Dermatological Surgical History: Reports: None - Past Imaging History Past Imaging History: Reports: CAT Scan (CT of the chest on 10/22/18. CT scan of the abdomen and pelvis without contrast using stone protocol on 06/20/17. CT of the abdomen and pelvis with contrast in October 2016, CT of the C-spine on , CT of the abdomen and pelvis on 03/22/11 with stone protocol), DEXA Scan () Social & Family History - Tobacco Use Smoking Status *Q: Never Smoker Tobacco Use Within Last Twelve Months: No Used Tobacco, but Quit: No Smoking Cessation Information Provided To Patient: No Second Hand Smoke Exposure: No Second Hand Smoke Education Provided: No - Caffeine Use Caffeine Use: Reports: Coffee (3 cups per day), Soda (3 sodas per week). Denies : Energy Drinks, Tea - Alcohol Use Alcohol Use History: Yes Days Per Week of Alcohol Use: 0 Number of Drinks Per Day: 1 Number of Drinks Per Day Comment: Usually wine for holidays. No previous DWIs, problems with alcohol abuse, etc. Total Drinks Per Week: 0 Alcohol Use in Last Twelve Months: Yes - Recreational Drug Use Recreational Drug Use: No Drug Use in Last 12 Months: No Recreational Drug Type: Denies: Amphetamines (Speed), Cocaine, Heroin, Inhalants (Glues, Solvents, Aerosols), LSD (Acid), Marijuana/Hashish, Methamphetamine, Morphine, Opium, Oxycodone - Living Situation & Occupation Living situation: Reports: (1965, 2 children living), with Family ( ) Occupation: Employed (Part-time teacher) ED ROS GENERAL - Review of Systems Review Of Systems: Comprehensive ROS is negative, except as noted in HPI. ED EXAM, GENERAL - Physical Exam Exam: See Below Exam Limited By: No Limitations General Appearance: Alert, WD/WN, No Apparent Distress Eye Exam: Bilateral Eye: EOMI, Normal Inspection (Patient wearing glasses. No nystagmus), PERRL Ears: Normal External Exam, Normal Canal, Hearing Loss (Bilateral hearing loss is mild and likely secondary to presbycusis) Nose: Normal Inspection, Normal Mucosa, No Blood Throat/Mouth: Normal Lips, Normal Gums, Normal Oropharynx, Normal Voice, No Airway Compromise. No: Normal Teeth (Complete dentures uppers and lowers), Dysphagia, Perioral Cyanosis Head: Atraumatic, Normocephalic. No: Facial Swelling, Facial Tenderness Neck: Supple, Non-Tender, Full Range of Motion, Carotid Bruit (Moderate bilateral carotid bruits versus transmitted heart sounds). No: Lymphadenopathy (L), Lymphadenopathy (R), Thyromegaly Respiratory/Chest: No Respiratory Distress, No Accessory Muscle Use, Chest Non- Tender, Rales (Mild diffuse bilateral rales especially in the bases). No: Pleural Rub, Retractions Cardiovascular: Normal Peripheral Pulses, No Gallop, No JVD, No Rub, Systolic Murmur (Stable 23/6 BETTYE of the aortic and mitral valves.), Extra Beats ( Frequent extrasystoles and PACs by monitor. Regular rate). No: No Edema ( Dependent edema as below), Gallop/S3, Gallop/S4, Friction Rub Peripheral Pulses: 2+: Radial (L), Radial (R), Dorsalis Pedis (L), Dorsalis Pedis (R) GI/Abdominal: Normal Bowel Sounds, Soft, Non-Tender, No Organomegaly, No Distention, No Abnormal Bruit, No Mass, Other (Obese). No: Guarding (Female) Exam: Deferred Rectal (Female) Exam: Deferred Back Exam: Full Range of Motion, Other (Mild to moderate kyphosis). No: CVA Tenderness (L), CVA Tenderness (R), Muscle Spasm, Paraspinal Tenderness, Vertebral Tenderness Extremities: Normal Range of Motion, Non-Tender, Pedal Edema (+1 bilateral pedal /pretibial edema). No: Kerry's Sign Neurological: Alert, Oriented, CN II-XII Intact, Normal Cognition, Normal Gait, Normal Reflexes (Negative Babinski's), No Motor/Sensory Deficits Psychiatric: Normal Affect, Normal Mood Skin Exam: Warm, Dry, Intact, Normal Color, No Rash. No: Diaphoretic, Wound/ Incision Lymphatic: No Adenopathy EKG INTERPRETATION EKG Date: 09/15/19 Time: 14:08 Rhythm: Other (Frequent PACs with sinus arrhythmia) Rate (Beats/Min): 71 [place]: Normal (Left) P-Wave: Present (Diffuse biphasic P waves with poor R-wave progression in the anterior leads) QRS: Normal (0.08 seconds with mild repolarization changes and new T wave inversion in leads 3 and V1) ST-T: Normal QT: Normal MA/PQ Interval: 0.16 seconds Comparison: Change From Previous EKG (As above since 03/06/19.) Course - Vital Signs Last Recorded V/S: Last Vital Signs Temp 36.2 C 09/15/19 14:15 Pulse 73 09/15/19 14:47 Resp 17 09/15/19 14:47 BP 170/71 H 09/15/19 14:47 Pulse Ox 96 09/15/19 14:47 Vital Signs - 24 hr 09/15/19 09/15/19 09/15/19 13:59 14:15 14:47 Temperature [ 36.2 C 36.2 C Temporal] Pulse, 82 78 73 Peripheral [ Left Pulse Oximetry] Respiratory 18 18 17 Rate Blood Pressure 154/51 H 178/56 H 170/71 H [Right Upper Arm] O2 Sat by Pulse 100 98 96 Oximetry O2 Sat by Pulse 98 Oximetry [Room Air] - Orders/Labs/Meds Orders: Active Orders 24 hr Category Date Time Status Cardiac Monitoring [RC] . DIRECTED Care 09/15/19 13:59 Active EKG Documentation Completion [RC] ASDIRECTED Care 09/15/19 13:59 Active Oxygen Therapy, ED [RC] PRN Care 09/15/19 13:59 Active Peripheral IV Care [RC] . DIRECTED Care 09/15/19 13:59 Active Pulse Oximetry [RC] CONTINUOUS Care 09/15/19 13:59 Active Up With Assistance [RC] PFP Care 09/15/19 13:59 Active Vital Signs [RC] PFP Care 09/15/19 13:59 Active Nothing per Oral Now Diet [DIET] Diet 09/15/19 Breakfast Active Chest 1V Frontal [CR] Stat Exams 09/15/19 13:59 Taken Chest PE [Ang Chest] [CT] Stat Exams 09/15/19 14:51 Taken Venous Doppler Lwr Ext Bi [US] Urgent Exams 09/15/19 14:51 Taken Sodium Chloride 0.9% [Saline Flush] Med 09/15/19 13:59 Active 10 ml FLUSH ASDIRECTED PRN Obtain Past Medical Record [OM.PC] Urgent Oth 09/15/19 13:59 Active Peripheral IV Insertion Adult [OM.PC] Stat Oth 09/15/19 13:59 Ordered Resuscitation Status Stat Resus Stat 09/15/19 13:59 Ordered Medication Orders Sodium Chloride (Saline Flush) 10 ml FLUSH ASDIRECTED PRN PRN Reason: Keep Vein Open Labs: Laboratory Tests 09/15/19 09/15/19 09/15/19 Range/Units 14:09 14:09 14:09 WBC 7.1 (4.0-10.2) K/uL RBC 4.25 (3.77-5.09) M/uL Hgb 10.8 L (11.7-15.5) g/dL Hct 35.8 (34.0-46.0) % MCV 84.2 D (84.0-98.0) fL MCH 25.4 L (28.2-33.3) pg MCHC 30.2 L (31.7-36.0) g/dL RDW 14.9 H (11.2-14.1) % Plt Count 404 H D (150-350) K/uL Neut % (Auto) 60.2 (45.0-80.0) % Lymph % (Auto) 21.3 (10.0-50.0) % [place] % (Auto) 12.8 (2.0-14.0) % Eos % (Auto) 5.0 (0.0-5.0) % Baso % (Auto) 0.7 (0.0-2.0) % Neut # (Auto) 4.29 (1.40-7.00) K/uL Lymph # (Auto) 1.52 (0.50-3.50) K/uL [place]imes # (Auto) 0.91 (0.00-1.00) K/uL Eos # (Auto) 0.36 (0.00-0.50) K/uL Baso # (Auto) 0.05 (0.00-0.20) K/uL PT 10.6 (9.5-12.0) SEC INR 1.0 APTT 31.5 H (21.0-31.3) SEC D-Dimer, Quantitative 801 H (0-400) ng/mL Sodium (136-145) mmol/L Potassium (3.5-5.1) mmol/L Chloride (98-107) mmol/L Carbon Dioxide (21.0-32.0) mmol/L BUN (7-18) mg/dL Creatinine (0.51-1.17) mg/dL Est Cr Clr Drug Dosing mL/min Estimated GFR (MDRD) mL/min Glucose (74-106) mg/dL Lactic Acid (0.4-2.0) mmol/L Uric Acid (2.6-7.2) mg/dL Calcium (8.5-10.1) mg/dL Magnesium (1.8-2.4) mg/dL Total Bilirubin (0.2-1.0) mg/dL AST (15-37) U/L ALT (12-78) U/L Alkaline Phosphatase (46-116) IU/L Creatine Kinase (26-308) U/L Creatine Kinase Index (0.0-2.5) % CK-MB (CK-2) (0.00-3.60) ng/mL Troponin I (0.000-0.056) ng/mL NT-Pro-B Natriuret Pep (0-125) pg/mL Total Protein (6.4-8.2) g/dL Albumin (3.4-5.0) g/dL TSH, Ultra Sensitive (0.358-3.740) mIU/mL 09/15/19 09/15/19 Range/Units 14:09 14:09 WBC (4.0-10.2) K/uL RBC (3.77-5.09) M/uL Hgb (11.7-15.5) g/dL Hct (34.0-46.0) % MCV (84.0-98.0) fL MCH (28.2-33.3) pg MCHC (31.7-36.0) g/dL RDW (11.2-14.1) % Plt Count (150-350) K/uL Neut % (Auto) (45.0-80.0) % Lymph % (Auto) (10.0-50.0) % [place] % (Auto) (2.0-14.0) % Eos % (Auto) (0.0-5.0) % Baso % (Auto) (0.0-2.0) % Neut # (Auto) (1.40-7.00) K/uL Lymph # (Auto) (0.50-3.50) K/uL [place] # (Auto) (0.00-1.00) K/uL Eos # (Auto) (0.00-0.50) K/uL Baso # (Auto) (0.00-0.20) K/uL PT (9.5-12.0) SEC INR APTT (21.0-31.3) SEC D-Dimer, Quantitative (0-400) ng/mL Sodium 142 (136-145) mmol/L Potassium 3.7 (3.5-5.1) mmol/L Chloride 107 (98-107) mmol/L Carbon Dioxide 26.4 (21.0-32.0) mmol/L BUN 12 (7-18) mg/dL Creatinine 0.92 (0.51-1.17) mg/dL Est Cr Clr Drug Dosing 42.36 mL/min Estimated GFR (MDRD) 59 mL/min Glucose 110 H (74-106) mg/dL Lactic Acid 0.9 (0.4-2.0) mmol/L Uric Acid 2.9 (2.6-7.2) mg/dL Calcium 8.6 (8.5-10.1) mg/dL Magnesium 1.9 (1.8-2.4) mg/dL Total Bilirubin 0.2 (0.2-1.0) mg/dL AST 18 (15-37) U/L ALT 16 (12-78) U/L Alkaline Phosphatase 109 (46-116) IU/L Creatine Kinase 131 (26-308) U/L Creatine Kinase Index 0.7 (0.0-2.5) % CK-MB (CK-2) 0.90 (0.00-3.60) ng/mL Troponin I 0.000 (0.000-0.056) ng/mL NT-Pro-B Natriuret Pep 371 H (0-125) pg/mL Total Protein 7.5 (6.4-8.2) g/dL Albumin 3.0 L (3.4-5.0) g/dL TSH, Ultra Sensitive 0.892 (0.358-3.740) mIU/mL Meds: Medications Generic Name Dose Route Start Last Admin Trade Name Freq PRN Reason Stop Dose Admin Sodium Chloride 10 ml 09/15/19 13:59 Saline Flush FLUSH ASDIRECTED PRN Keep Vein Open Discontinued Medications Generic Name Dose Route Start Last Admin Trade Name Freq PRN Reason Stop Dose Admin Famotidine 40 mg 09/15/19 13:59 09/15/19 14:36 Pepcid IVPUSH 09/15/19 14:00 40 mg ONETIME ONE Administration Iopamidol 100 ml 09/15/19 14:59 09/15/19 15:33 Isovue-370 (76%) IVPUSH 09/15/19 15:00 100 ml ONETIME ONE Administration - Radiology Interpretation Free Text/Narrative:: engine monitor shows frequent PACs and moderate sinus arrhythmia with average heart rate in the 70s with no other ectopy or arrhythmia Chest x-ray shows mild centralized CHF and cardiomegaly with somewhat prominent aortic arch. Mild to moderate pulmonary obstructive disease with no significant pulmonary infiltrates, pneumothorax, etc. CTA chest using PE protocol was negative for acute PE with somewhat progressive left lower lobe pulmonary nodule and some mediastinal lymphadenopathy with follow-up recommended by the radiologist. Preliminary verbal report was not received from the radiologist despite previous request. Preliminary verbal report from hearing aide technician, Julie, concerning bilateral venous Doppler studies of the lower extremities, which were positive for a DVT in the right lower mid to distal femoral vein. Departure - Departure Time of Disposition: 17:20 Disposition: Admitted As Inpatient 67 Condition: Good Clinical Impression: Cardiac murmur, Peptic reflux disease, Renal insufficiency, Hypoalbuminemia, D- dimer, elevated, PAC (premature atrial contraction), Pulmonary nodule CHF (congestive heart failure) Qualifiers: Heart failure type: unspecified Heart failure chronicity: acute Qualified Code( s): I50.9 - Heart failure, unspecified Hypertension Qualifiers: Hypertension type: essential hypertension Qualified Code(s): I10 - Essential ( primary) hypertension Osteoarthritis Qualifiers: Osteoarthritis location: multiple joints Osteoarthritis type: primary Qualified Code(s): M15.0 - Primary generalized (osteo)arthritis Asthma Qualifiers: Asthma severity: moderate Asthma persistence: unspecified Asthma complication type: uncomplicated Qualified Code(s): J45.909 - Unspecified asthma, uncomplicated Hyperlipidemia Qualifiers: Hyperlipidemia type: unspecified Qualified Code(s): E78.5 - Hyperlipidemia, unspecified DVT (deep venous thrombosis) Qualifiers: DVT location: lower extremity Affected thrombotic vein of extremity: femoral Chronicity: acute Laterality: right Qualified Code(s): I82.411 - Acute embolism and thrombosis of right femoral vein - Discharge Information *PRESCRIPTION DRUG MONITORING PROGRAM REVIEWED*: Not Applicable *COPY OF PRESCRIPTION DRUG MONITORING REPORT IN PATIENT AMARI: Not Applicable Sepsis Event Note - Focused Exam Vital Signs: Vital Signs Temp Pulse Resp BP Pulse Ox Pulse Ox 09/15/19 14:47 73 17 170/71 H 96 09/15/19 14:15 36.2 C 78 18 178/56 H 98 09/15/19 13:59 36.2 C 82 18 154/51 H 100 98 Date Exam was Performed: 09/15/19 Time Exam was Performed: 17:25 - Problem List & Annotations (1) CHF (congestive heart failure) SNOMED Code(s): 86105112 Code(s): I50.9 - HEART FAILURE, UNSPECIFIED Status: Acute Priority: High Current Visit: Yes Onset Date: 09/15/19 Annotation/Comment:: Newly diagnosed. Echocardiogram on an outpatient as below. Initiate IV Lasix therapy with caution secondary to her previous history of renal insufficiency. No chest pain or anginal type symptoms with chest pain protocol not initiated upon patient's arrival to the emergency room. Initiate standard rule out MS orders. Cardiology consultation depending on her clinical course. Consider Cardiolite stress test on an outpatient basis. Consider JACOBO inhibitor therapy with caution prior to discharge however note increase of her Lasix and also new Toprol-XL therapy on admission. Qualifiers: Heart failure type: unspecified Heart failure chronicity: acute Qualified Code(s): I50.9 - Heart failure, unspecified (2) D-dimer, elevated SNOMED Code(s): 835936761 Code(s): R79.89 - OTHER SPECIFIED ABNORMAL FINDINGS OF BLOOD CHEMISTRY Status: Acute Priority: High Current Visit: Yes Onset Date: 09/15/19 Annotation/Comment:: Note CTA of the chest and venous Doppler studies of the lower extremity results as above. Initiate Lovenox on admission with additional initiation of loading dose of Coumadin. Note that the patient's is already on Coumadin with Coumadin teaching during this hospitalization. (3) DVT (deep venous thrombosis) SNOMED Code(s): 325044568 Code(s): I82.409 - ACUTE EMBOLISM AND THOMBOS UNSP DEEP VN UNSP LOWER EXTREMITY Status: Acute Priority: High Current Visit: Yes Onset Date: Annotation/Comment:: As above Qualifiers: DVT location: lower extremity Affected thrombotic vein of extremity: femoral Chronicity: acute Laterality: right Qualified Code(s): I82.411 - Acute embolism and thrombosis of right femoral vein (4) Pulmonary nodule SNOMED Code(s): 233027793 Code(s): R91.1 - SOLITARY PULMONARY NODULE Status: Chronic Priority: Medium Current Visit: Yes Annotation/Comment:: Recommended follow-up as per radiology with mediastinal lymphadenopathy noted and previous history of cancer as above. (5) PAC (premature atrial contraction) SNOMED Code(s): 725021059 Code(s): I49.1 - ATRIAL PREMATURE DEPOLARIZATION Status: Acute Priority: High Current Visit: Yes Onset Date: 09/15/19 Annotation/Comment:: Frequent PACs with moderate sinus arrhythmia. Initiate low-dose beta yamileth therapy in the a.m. with caution secondary to her current diltiazem therapy. Low -dose IV Lopressor given in the emergency room. (6) Cardiac murmur SNOMED Code(s): 28080575 Code(s): R01.1 - CARDIAC MURMUR, UNSPECIFIED Status: Chronic Priority: High Current Visit: Yes Annotation/Comment:: Previously progressive moderate aortic valve stenosis and mitral valve insufficiency by clinical exam with stable exam since 03/06/19. Echocardiogram to be conducted on an outpatient basis especially in light of her newly diagnosed CHF. Note dependent edema, which is also relatively stable. (7) Hypertension SNOMED Code(s): 28085771 Code(s): I10 - ESSENTIAL (PRIMARY) HYPERTENSION Status: Chronic Priority : Medium Current Visit: Yes Annotation/Comment:: Blood pressures somewhat elevated in the emergency room. Continue to observe closely with initiation of IV Lasix therapy as above. Qualifiers: Hypertension type: essential hypertension Qualified Code(s): I10 - Essential (primary) hypertension (8) Asthma SNOMED Code(s): 839324240 Code(s): J45.909 - UNSPECIFIED ASTHMA, UNCOMPLICATED Status: Chronic Priority: Medium Current Visit: Yes Annotation/Comment:: Chronic cough likely secondary to her mild CHF. Additional asthma versus COPD No recent fever or other true bronchitic type symptoms. IM Depo-Medrol on admission with Mucinex DM during this hospitalization. Attempt to obtain sputum specimen. Nebulizer therapy during this hospitalization with consideration of a nebulizer unit at discharge. Qualifiers: Asthma severity: moderate Asthma persistence: unspecified Asthma complication type: uncomplicated Qualified Code(s): J45.909 - Unspecified asthma, uncomplicated (9) Osteoarthritis SNOMED Code(s): 354170701 Code(s): M19.90 - UNSPECIFIED OSTEOARTHRITIS, UNSPECIFIED SITE Status: Chronic Priority: Medium Current Visit: Yes Annotation/Comment:: Stable by history Qualifiers: Osteoarthritis location: multiple joints Osteoarthritis type: primary Qualified Code(s): M15.0 - Primary generalized (osteo)arthritis (10) Hyperlipidemia SNOMED Code(s): 97127937 Code(s): E78.5 - HYPERLIPIDEMIA, UNSPECIFIED Status: Chronic Priority: Medium Current Visit: Yes Annotation/Comment:: Lipid panel and glycosylated hemoglobin in the a.m. No current medical therapy with weight loss in moderation advised. She may benefit from a statin. Close follow-up by regular provider. Qualifiers: Hyperlipidemia type: unspecified Qualified Code(s): E78.5 - Hyperlipidemia , unspecified (11) Peptic reflux disease SNOMED Code(s): 111728239 Code(s): K21.9 - GASTRO-ESOPHAGEAL REFLUX DISEASE WITHOUT ESOPHAGITIS Status: Chronic Priority: Medium Current Visit: Yes Annotation/Comment:: Stable by history with high-dose IV Pepcid given in the emergency room as GI prophylaxis. (12) Renal insufficiency SNOMED Code(s): 580756895, 532057127 Code(s): N28.9 - DISORDER OF KIDNEY AND URETER, UNSPECIFIED Status: Acute Priority: High Current Visit: Yes Onset Date: 03/06/19 Annotation/ Comment:: Normal renal function today. Continue to observe closely secondary to her Lasix therapy as above. (13) Hypoalbuminemia SNOMED Code(s): 478493011 Code(s): E88.09 - OTH DISORDERS OF PLASMA-PROTEIN METABOLISM, NEC Status: Acute Priority: Medium Current Visit: Yes Onset Date: 09/15/19 Annotation/Comment:: Observe for now (14) Microcytic anemia SNOMED Code(s): 669893268 Code(s): D50.9 - IRON DEFICIENCY ANEMIA, UNSPECIFIED Status: Acute Priority: Medium Current Visit: Yes Onset Date: 03/06/19 Annotation/ Comment:: Iron studies and vitamin B-12 level to be conducted in the a.m. Note previous mild renal insufficiency. No evidence of GI bleed, etc. - Problem List Review Problem List Initiated/Reviewed/Updated: Yes - My Orders Last 24 Hours: My Active Orders 09/15/19 13:59 Cardiac Monitoring [RC] . DIRECTED EKG Documentation Completion [RC] ASDIRECTED Oxygen Therapy, ED [RC] PRN Peripheral IV Care [RC] . DIRECTED Pulse Oximetry [RC] CONTINUOUS Up With Assistance [RC] PFP Vital Signs [RC] PFP Chest 1V Frontal [CR] Stat Sodium Chloride 0.9% [Saline Flush] 10 ml FLUSH ASDIRECTED PRN Obtain Past Medical Record [OM.PC] Urgent Peripheral IV Insertion Adult [OM.PC] Stat Resuscitation Status Stat 09/15/19 14:51 Chest PE [Ang Chest] [CT] Stat Venous Doppler Lwr Ext Bi [US] Urgent 09/15/19 Breakfast Nothing per Oral Now Diet [DIET] - Assessment/Plan Admission H&P: Please use this note as an admission H&P Last 24 Hours: My Active Orders 09/15/19 13:59 Cardiac Monitoring [RC] . DIRECTED EKG Documentation Completion [RC] ASDIRECTED Oxygen Therapy, ED [RC] PRN Peripheral IV Care [RC] . DIRECTED Pulse Oximetry [RC] CONTINUOUS Up With Assistance [RC] PFP Vital Signs [RC] PFP Chest 1V Frontal [CR] Stat Sodium Chloride 0.9% [Saline Flush] 10 ml FLUSH ASDIRECTED PRN Obtain Past Medical Record [OM.PC] Urgent Peripheral IV Insertion Adult [OM.PC] Stat Resuscitation Status Stat 09/15/19 14:51 Chest PE [Ang Chest] [CT] Stat Venous Doppler Lwr Ext Bi [US] Urgent 09/15/19 Breakfast Nothing per Oral Now Diet [DIET] Assessment:: As above Plan: As above. Extensive precautions were given to the patient and her , who are in agreement with the treatment plan. The patient will require about 3-4 days of inpatient/acute care secondary to multiple health problems as above. Fede kinsey physician assumes care in the a.m.
[2019-09-15] MEDS ORDERED: Iopamidol 755 Mg/ML 100 ML Bottle IVPUSH ONE (14:59)
[2019-09-15] MEDS ORDERED: Warfarin 5 MG Tab PO ONE (17:32)
[2019-09-15] MEDS ORDERED: Temazepam 15 MG Cap PO PRN (17:33)
[2019-09-15] MEDS ORDERED: Sodium Chloride 0.9% 10 ML Syringe FLUSH PRN (17:33)
[2019-09-15] MEDS ORDERED: Acetaminophen 325 MG Tab PO PRN (17:33)
[2019-09-15] MEDS ORDERED: Albuterol 0.083% 2.5 MG/3 ML Neb Soln NEB PRN (17:37)
[2019-09-15] MEDS ORDERED: Albuterol/Ipratropium 3.0-0.5 MG/3 ML Neb Soln NEB PRN (17:37)
[2019-09-15] MEDS ORDERED: Metoprolol Tartrate 5 MG/5 ML SDV IVPUSH ONE (17:38)
[2019-09-15] MEDS ORDERED: methylPREDNISolone Sodium Succinate 125 MG/2 ML SDV IVPUSH ONE (17:42)
[2019-09-15] MEDS: Enoxaparin 100 MG/1 ML Syringe SUBCUT SCH (18:36)
[2019-09-15] MEDS: Dextromethorphan/guaiFENesin 600-30 MG Tab.ER PO SCH (18:37)
[2019-09-15] MEDS: Potassium Chloride 20 MEQ Tab.ER PO SCH (18:38)
[2019-09-15] MEDS: Furosemide 40 MG/4 ML VIAL IVPUSH SCH (18:40)
[2019-09-15] MEDS: Sodium Chloride 0.9% 10 ML Syringe FLUSH PRN ×2 (18:42→19:36)
[2019-09-15] MEDS: Diltiazem 180 MG Cap.CD PO SCH (19:32)
[2019-09-15] MEDS: Budesonide 0.5 MG/2 ML Neb Susp NEB SCH (19:33)
[2019-09-15] MEDS: Albuterol/Ipratropium 3.0-0.5 MG/3 ML Neb Soln NEB SCH (19:33)
[2019-09-16] MEDS: Furosemide 40 MG/4 ML VIAL IVPUSH SCH ×2 (01:15→10:15)
[2019-09-16] MEDS: Sodium Chloride 0.9% 10 ML Syringe FLUSH PRN ×2 (01:15→18:17)
[2019-09-16] MEDS: Albuterol/Ipratropium 3.0-0.5 MG/3 ML Neb Soln NEB SCH ×2 (01:15→07:30)
[2019-09-16] MEDS: Potassium Chloride 20 MEQ Tab.ER PO SCH ×2 (07:30→18:17)
[2019-09-16] MEDS: Losartan 50 MG Tab PO SCH (07:30)
[2019-09-16] MEDS: Omeprazole 20 MG Cap.CR PO SCH (07:30)
[2019-09-16] MEDS: Dextromethorphan/guaiFENesin 600-30 MG Tab.ER PO SCH ×2 (07:30→18:17)
[2019-09-16] MEDS: Metoprolol Succinate 25 MG Tab.ER PO SCH (07:30)
[2019-09-16] MEDS: Budesonide 0.5 MG/2 ML Neb Susp NEB SCH ×2 (07:31→19:56)
[2019-09-16 07:42] LABS: HEMOGLOBIN A1C 5.7 % (4.3-5.7)
[2019-09-16] MEDS ORDERED: Warfarin 5 MG Tab PO ONE (10:06)
[2019-09-16] MEDS: Benzonatate 100 MG Cap PO PRN ×2 (10:26→19:56)
--- NOTE | 2019-09-16 17:07 | PCM.PN ---
- General Info Date of Service: 09/16/19 Admission Dx/Problem (Free Text): CHF, SOB Diuresis on-going New DVT On Coumadin and Lovenox Subjective Update: Feels better 6 lb weight loss - Review of Systems Pulmonary: Reports: Shortness of Breath Cardiovascular: Reports: Edema Gastrointestinal: Reports: No Symptoms - Patient Data Vitals - Most Recent: Last Vital Signs Temp 36.8 C 09/16/19 16:00 Pulse 72 09/16/19 16:00 Resp 17 09/16/19 16:00 BP 145/55 H 09/16/19 16:00 Pulse Ox 92 L 09/16/19 16:00 Weight - Most Recent: 94.529 kg I&O - Last 24 Hours: Intake & Output 09/16/19 09/16/19 09/16/19 02:59 10:59 18:59 Intake Total 061 449 9576 Output Total 3075 Balance 120 -2905 1440 Lab Results Last 24 Hours: Laboratory Results - last 24 hr 09/15/19 09/16/19 09/16/19 Range/Units 09:15 07:20 07:20 WBC 5.5 (4.0-10.2) K/uL RBC 4.52 (3.77-5.09) M/uL Hgb 11.6 L (11.7-15.5) g/dL Hct 37.5 (34.0-46.0) % MCV 83.0 L (84.0-98.0) fL MCH 25.7 L (28.2-33.3) pg MCHC 30.9 L (31.7-36.0) g/dL RDW 14.9 H (11.2-14.1) % Plt Count 428 H (150-350) K/uL Neut % (Auto) 88.0 H (45.0-80.0) % Lymph % (Auto) 10.3 (10.0-50.0) % [place] % (Auto) 1.5 L (2.0-14.0) % Eos % (Auto) 0.0 (0.0-5.0) % Baso % (Auto) 0.2 (0.0-2.0) % Neut # (Auto) 4.85 (1.40-7.00) K/uL Lymph # (Auto) 0.57 (0.50-3.50) K/uL [place] # (Auto) 0.08 (0.00-1.00) K/uL Eos # (Auto) 0.00 (0.00-0.50) K/uL Baso # (Auto) 0.01 (0.00-0.20) K/uL PT (9.5-12.0) SEC INR Sodium 142 (136-145) mmol/L Potassium 4.1 (3.5-5.1) mmol/L Chloride 104 (98-107) mmol/L Carbon Dioxide 27.5 (21.0-32.0) mmol/L BUN 15 (7-18) mg/dL Creatinine 0.91 (0.51-1.17) mg/dL Est Cr Clr Drug Dosing 42.83 mL/min Estimated GFR (MDRD) 60 mL/min Glucose 184 H (74-106) mg/dL Hemoglobin A1c (4.3-5.7) % Calcium 9.1 (8.5-10.1) mg/dL Iron (50-175) ug/dL TIBC (250-450) ug/dL % Saturation Ferritin (8-388) ng/mL Total Bilirubin 0.1 L (0.2-1.0) mg/dL AST 16 (15-37) U/L ALT 18 (12-78) U/L Alkaline Phosphatase 103 (46-116) IU/L Creatine Kinase 144 93 (26-308) U/L Creatine Kinase Index 0.6 0.9 (0.0-2.5) % CK-MB (CK-2) 0.90 0.80 (0.00-3.60) ng/mL Troponin I 0.000 0.000 (0.000-0.056) ng/mL NT-Pro-B Natriuret Pep 714 H (0-125) pg/mL Total Protein 7.9 (6.4-8.2) g/dL Albumin 3.1 L (3.4-5.0) g/dL Triglycerides 55 (30-150) mg/dL Cholesterol 195 (100-200) mg/dL LDL Cholesterol, Calc 135 H (0-100) mg/dL HDL Cholesterol 49 (40-60) mg/dL Vitamin B12 177 L (193-986) pg/mL 09/16/19 09/16/1909/16/20 Range/Units 07:20 07:20 07:20 WBC (4.0-10.2) K/uL RBC (3.77-5.09) M/uL Hgb (11.7-15.5) g/dL Hct (34.0-46.0) % MCV (84.0-98.0) fL MCH (28.2-33.3) pg MCHC (31.7-36.0) g/dL RDW (11.2-14.1) % Plt Count (150-350) K/uL Neut % (Auto) (45.0-80.0) % Lymph % (Auto) (10.0-50.0) % [place] % (Auto) (2.0-14.0) % Eos % (Auto) (0.0-5.0) % Baso % (Auto) (0.0-2.0) % Neut # (Auto) (1.40-7.00) K/uL Lymph # (Auto) (0.50-3.50) K/uL [place] # (Auto) (0.00-1.00) K/uL Eos # (Auto) (0.00-0.50) K/uL Baso # (Auto) (0.00-0.20) K/uL PT 11.4 (9.5-12.0) SEC INR 1.1 Sodium (136-145) mmol/L Potassium (3.5-5.1) mmol/L Chloride (98-107) mmol/L Carbon Dioxide (21.0-32.0) mmol/L BUN (7-18) mg/dL Creatinine (0.51-1.17) mg/dL Est Cr Clr Drug Dosing mL/min Estimated GFR (MDRD) mL/min Glucose (74-106) mg/dL Hemoglobin A1c 5.7 (4.3-5.7) % Calcium (8.5-10.1) mg/dL Iron 16 L (50-175) ug/dL TIBC 297 (250-450) ug/dL % Saturation [id number] Ferritin 35 (8-388) ng/mL Total Bilirubin (0.2-1.0) mg/dL AST (15-37) U/L ALT (12-78) U/L Alkaline Phosphatase (46-116) IU/L Creatine Kinase (26-308) U/L Creatine Kinase Index (0.0-2.5) % CK-MB (CK-2) (0.00-3.60) ng/mL Troponin I (0.000-0.056) ng/mL NT-Pro-B Natriuret Pep (0-125) pg/mL Total Protein (6.4-8.2) g/dL Albumin (3.4-5.0) g/dL Triglycerides (30-150) mg/dL Cholesterol (100-200) mg/dL LDL Cholesterol, Calc (0-100) mg/dL HDL Cholesterol (40-60) mg/dL Vitamin B12 (193-986) pg/mL Behzad Results Last 24 Hours: Microbiology 09/16/19 08:00 Stool Occult Blood (BEHZAD) - Final Stool / Feces NEGATIVE OCCULT BLOOD REFERENCE RANGE: NEGATIVE Med Orders - Current: Current Medications Acetaminophen (Tylenol) 650 mg PO Q4H PRN PRN Reason: Pain Albuterol (Proventil Neb Soln) 2.5 mg NEB Q2H PRN PRN Reason: Dyspnea Albuterol/Ipratropium (Duoneb 3.0-0.5 Mg/3 Ml) 3 ml NEB Q4HRRT PRN PRN Reason: Dyspnea Benzonatate (Tessalon Perles) 100 mg PO Q8H PRN PRN Reason: Cough Last Admin: 09/16/19 10:26 Dose: 100 mg Budesonide (Pulmicort) 0.5 mg NEB BIDRT [facility] Last Admin: 09/16/19 07:31 Dose: 0.5 mg Diltiazem HCl (Cardizem Cd) 180 mg PO BEDTIME [facility] Last Admin: 09/15/19 19:32 Dose: 180 mg Enoxaparin Sodium (Lovenox) 100 mg SUBCUT Q24H [facility] Last Admin: 09/15/19 18:36 Dose: 100 mg Furosemide (Lasix) 40 mg IVPUSH Q8H [facility] Last Admin: 09/16/19 10:15 Dose: Not Given Guaifenesin/Dextromethorphan (Mucinex Dm Er 600-30 Mg) 1 tab PO BID [facility] Last Admin: 09/16/19 07:30 Dose: 1 tab Losartan Potassium (Cozaar) 50 mg PO DAILY [facility] Last Admin: 09/16/19 07:30 Dose: 50 mg Metoprolol Succinate (Toprol Xl) 25 mg PO DAILY [facility] Last Admin: 09/16/19 07:30 Dose: 25 mg Omeprazole (Omeprazole) 20 mg PO DAILY [facility] Last Admin: 09/16/19 07:30 Dose: 20 mg Potassium Chloride (Klor-Con M20) 20 meq PO BIDMEALS [facility] Sodium Chloride (Saline Flush) 10 ml FLUSH ASDIRECTED PRN PRN Reason: Keep Vein Open Last Admin: 09/16/19 01:15 Dose: 10 ml Sodium Chloride (Saline Flush) 10 ml FLUSH Q12HR PRN PRN Reason: Keep Vein Open Temazepam (Restoril) 15 mg PO BEDTIME PRN PRN Reason: Insomnia Discontinued Medications Albuterol/Ipratropium (Duoneb 3.0-0.5 Mg/3 Ml) 3 ml NEB Q6HRRT [facility] Last Admin: 09/16/19 07:30 Dose: 3 ml Famotidine (Pepcid) 40 mg IVPUSH ONETIME ONE Stop: 09/15/19 14:00 Last Admin: 09/15/19 14:36 Dose: 40 mg Iopamidol (Isovue-370 (76%)) 100 ml IVPUSH ONETIME ONE Stop: 09/15/19 15:00 Last Admin: 09/15/19 15:33 Dose: 100 ml Methylprednisolone Sodium Succinate (Solu-Medrol) 125 mg IVPUSH ONETIME ONE Stop: 09/15/19 17:43 Last Admin: 09/15/19 19:32 Dose: 125 mg Metoprolol Tartrate (Lopressor) 2.5 mg IVPUSH ONETIME ONE Stop: 09/15/19 17:39 Last Admin: 09/15/19 18:39 Dose: 2.5 mg Potassium Chloride (Klor-Con M20) 20 meq PO TID [facility] Last Admin: 09/16/19 07:30 Dose: 20 meq Warfarin Sodium (Coumadin) 10 mg PO ONETIME ONE Stop: 09/15/19 17:33 Last Admin: 09/15/19 18:38 Dose: 10 mg Warfarin Sodium (Coumadin) 10 mg PO ONETIME ONE Stop: 09/16/19 10:07 Last Admin: 09/16/19 10:28 Dose: 10 mg - Exam Quality Assessment: Supplemental Oxygen General: Alert, Oriented Neck: Supple Lungs: Rales Cardiovascular: Regular Rate GI/Abdominal Exam: Non-Tender Extremities: Pedal Edema Sepsis Event Note - Evaluation Sepsis Screening Result: No Definite Risk - Focused Exam Vital Signs: Vital Signs Temp Pulse Pulse Resp BP BP Pulse Ox 09/16/19 16:00 36.8 C 72 17 145/55 H 92 L 09/16/19 07:36 36.6 C 81 20 157/69 H 93 L 09/16/19 07:30 81 157/69 H 09/16/19 05:05 36.4 C 96 20 167/56 H 96 Date Exam was Performed: 09/16/19 Time Exam was Performed: 17:04 - Problem List Review Problem List Initiated/Reviewed/Updated: Yes - My Orders Last 24 Hours: My Active Orders 09/16/19 09:57 Benzonatate [Tessalon Perles] 100 mg PO Q8H PRN 09/16/19 16:00 Vital Signs [RC] Q8H 09/16/19 17:30 Potassium Chloride [Klor-Con M20] 20 meq PO BIDMEALS 09/16/19 Lunch Low Fat Diet [DIET] - Assessment Assessment:: IMP: CHF Continue diuresis DVT Continue Coumadin and Lovenox - Plan Plan:: Plan: continue diuresis Continue Coumadin and Lovenox
[2019-09-16] MEDS: Enoxaparin 100 MG/1 ML Syringe SUBCUT SCH (18:17)
[2019-09-16] MEDS: Diltiazem 180 MG Cap.CD PO SCH (19:56)
[2019-09-16] MEDS: Sodium Chloride 0.9% 10 ML Syringe FLUSH SCH (20:04)
[2019-09-17] MEDS: Potassium Chloride 20 MEQ Tab.ER PO SCH ×2 (07:32→17:50)
[2019-09-17] MEDS: Losartan 50 MG Tab PO SCH (07:32)
[2019-09-17] MEDS: Dextromethorphan/guaiFENesin 600-30 MG Tab.ER PO SCH ×2 (07:33→17:52)
[2019-09-17] MEDS: Omeprazole 20 MG Cap.CR PO SCH (07:34)
[2019-09-17] MEDS: Sodium Chloride 0.9% 10 ML Syringe FLUSH SCH ×2 (07:34→20:38)
[2019-09-17] MEDS: Budesonide 0.5 MG/2 ML Neb Susp NEB SCH ×2 (07:34→20:39)
[2019-09-17] MEDS: Metoprolol Succinate 25 MG Tab.ER PO SCH (07:36)
[2019-09-17] MEDS: Benzonatate 100 MG Cap PO PRN ×2 (08:48→22:36)
[2019-09-17] MEDS ORDERED: Warfarin 5 MG Tab PO ONE (08:59)
[2019-09-17] MEDS: Sodium Chloride 0.9% 10 ML Syringe FLUSH PRN ×2 (10:01→17:49)
[2019-09-17] MEDS: Furosemide 40 MG/4 ML VIAL IVPUSH SCH ×2 (10:01→16:10)
[2019-09-17] MEDS: Enoxaparin 100 MG/1 ML Syringe SUBCUT SCH (17:51)
[2019-09-17] MEDS: Diltiazem 180 MG Cap.CD PO SCH (20:37)
[2019-09-18] MEDS: Budesonide 0.5 MG/2 ML Neb Susp NEB SCH ×2 (07:32→20:05)
[2019-09-18] MEDS: Dextromethorphan/guaiFENesin 600-30 MG Tab.ER PO SCH ×2 (07:33→17:19)
[2019-09-18] MEDS: Losartan 50 MG Tab PO SCH (07:33)
[2019-09-18] MEDS: Omeprazole 20 MG Cap.CR PO SCH (07:33)
[2019-09-18] MEDS: Metoprolol Succinate 25 MG Tab.ER PO SCH (07:33)
[2019-09-18] MEDS: Potassium Chloride 20 MEQ Tab.ER PO SCH ×2 (07:33→17:18)
[2019-09-18] MEDS: Furosemide 40 MG/4 ML VIAL IVPUSH SCH (07:34)
[2019-09-18] MEDS: Sodium Chloride 0.9% 10 ML Syringe FLUSH SCH ×2 (07:35→20:05)
--- NOTE | 2019-09-18 10:36 | PCM.PN ---
- General Info Date of Service: 09/17/19 Admission Dx/Problem (Free Text): CHF, SOB Diuresis on-going New DVT On Coumadin and Lovenox Subjective Update: Feels better - Review of Systems Pulmonary: Reports: Shortness of Breath Cardiovascular: Reports: Edema - Patient Data Vitals - Most Recent: Last Vital Signs Temp 36.1 C 09/18/19 07:30 Pulse 73 09/18/19 07:33 Resp 17 09/18/19 07:30 BP 149/83 H 09/18/19 07:33 Pulse Ox 95 09/18/19 07:30 Weight - Most Recent: 93.213 kg I&O - Last 24 Hours: Intake & Output 09/17/19 09/18/19 09/18/19 18:59 02:59 10:59 Intake Total 540 100 Output Total 454 606 5562 Balance 90 -900 -1150 Lab Results Last 24 Hours: Laboratory Results - last 24 hr 09/18/19 09/18/19 09/18/19 Range/Units 07:00 07:00 07:00 WBC 7.4 (4.0-10.2) K/uL RBC 4.52 (3.77-5.09) M/uL Hgb 11.5 L (11.7-15.5) g/dL Hct 38.0 (34.0-46.0) % MCV 84.1 (84.0-98.0) fL MCH 25.4 L (28.2-33.3) pg MCHC 30.3 L (31.7-36.0) g/dL RDW 15.2 H (11.2-14.1) % Plt Count 391 H (150-350) K/uL Neut % (Auto) 57.3 (45.0-80.0) % Lymph % (Auto) 28.6 (10.0-50.0) % [place] % (Auto) 10.7 (2.0-14.0) % Eos % (Auto) 3.0 (0.0-5.0) % Baso % (Auto) 0.4 (0.0-2.0) % Neut # (Auto) 4.23 (1.40-7.00) K/uL Lymph # (Auto) 2.11 (0.50-3.50) K/uL [place] # (Auto) 0.79 (0.00-1.00) K/uL Eos # (Auto) 0.22 (0.00-0.50) K/uL Baso # (Auto) 0.03 (0.00-0.20) K/uL PT 29.3 H D (9.5-12.0) SEC INR 2.7 Sodium 141 (136-145) mmol/L Potassium 4.5 (3.5-5.1) mmol/L Chloride 106 (98-107) mmol/L Carbon Dioxide 30.0 (21.0-32.0) mmol/L BUN 33 H (7-18) mg/dL Creatinine 1.10 (0.51-1.17) mg/dL Est Cr Clr Drug Dosing 35.43 mL/min Estimated GFR (MDRD) 48 mL/min Glucose 91 (74-106) mg/dL Calcium 8.5 (8.5-10.1) mg/dL Med Orders - Current: Current Medications Acetaminophen (Tylenol) 650 mg PO Q4H PRN PRN Reason: Pain Albuterol (Proventil Neb Soln) 2.5 mg NEB Q2H PRN PRN Reason: Dyspnea Albuterol/Ipratropium (Duoneb 3.0-0.5 Mg/3 Ml) 3 ml NEB Q4HRRT PRN PRN Reason: Dyspnea Last Admin: 09/16/19 21:29 Dose: 3 ml Benzonatate (Tessalon Perles) 100 mg PO Q8H PRN PRN Reason: Cough Last Admin: 09/17/19 22:36 Dose: 100 mg Budesonide (Pulmicort) 0.5 mg NEB BIDRT [facility] Last Admin: 09/18/19 07:32 Dose: 0.5 mg Diltiazem HCl (Cardizem Cd) 180 mg PO BEDTIME [facility] Last Admin: 09/17/19 20:37 Dose: 180 mg Enoxaparin Sodium (Lovenox) 100 mg SUBCUT Q24H [facility] Last Admin: 09/17/19 17:51 Dose: 100 mg Furosemide (Lasix) 40 mg IVPUSH Q8H [facility] Last Admin: 09/16/19 10:15 Dose: Not Given Furosemide (Lasix) 40 mg IVPUSH BID@0800,1600 [facility] Last Admin: 01/03/20 07:34 Dose: 40 mg Guaifenesin/Dextromethorphan (Mucinex Dm Er 600-30 Mg) 1 tab PO BID [facility] Last Admin: 09/18/19 07:33 Dose: 1 tab Losartan Potassium (Cozaar) 50 mg PO DAILY [facility] Last Admin: 09/18/19 07:33 Dose: 50 mg Metoprolol Succinate (Toprol Xl) 25 mg PO DAILY [facility] Last Admin: 09/18/19 07:33 Dose: 25 mg Omeprazole (Omeprazole) 20 mg PO DAILY [facility] Last Admin: 09/18/19 07:33 Dose: 20 mg Potassium Chloride (Klor-Con M20) 20 meq PO BIDMEALS [facility] Last Admin: 09/18/19 07:33 Dose: 20 meq Sodium Chloride (Saline Flush) 10 ml FLUSH ASDIRECTED PRN PRN Reason: Keep Vein Open Last Admin: 09/17/19 17:49 Dose: 10 ml Sodium Chloride (Saline Flush) 10 ml FLUSH Q12HR [facility] Last Admin: 09/18/19 07:35 Dose: 10 ml Temazepam (Restoril) 15 mg PO BEDTIME PRN PRN Reason: Insomnia Discontinued Medications Albuterol/Ipratropium (Duoneb 3.0-0.5 Mg/3 Ml) 3 ml NEB Q6HRRT [facility] Last Admin: 09/16/19 07:30 Dose: 3 ml Famotidine (Pepcid) 40 mg IVPUSH ONETIME ONE Stop: 09/15/19 14:00 Last Admin: 09/15/19 14:36 Dose: 40 mg Iopamidol (Isovue-370 (76%)) 100 ml IVPUSH ONETIME ONE Stop: 09/15/19 15:00 Last Admin: 09/15/19 15:33 Dose: 100 ml Methylprednisolone Sodium Succinate (Solu-Medrol) 125 mg IVPUSH ONETIME ONE Stop: 09/15/19 17:43 Last Admin: 09/15/19 19:32 Dose: 125 mg Metoprolol Tartrate (Lopressor) 2.5 mg IVPUSH ONETIME ONE Stop: 09/15/19 17:39 Last Admin: 09/15/19 18:39 Dose: 2.5 mg Potassium Chloride (Klor-Con M20) 20 meq PO TID [facility] Last Admin: 09/16/19 07:30 Dose: 20 meq Sodium Chloride (Saline Flush) 10 ml FLUSH Q12HR PRN PRN Reason: Keep Vein Open Warfarin Sodium (Coumadin) 10 mg PO ONETIME ONE Stop: 09/15/19 17:33 Last Admin: 09/15/19 18:38 Dose: 10 mg Warfarin Sodium (Coumadin) 10 mg PO ONETIME ONE Stop: 09/16/19 10:07 Last Admin: 09/16/19 10:28 Dose: 10 mg Warfarin Sodium (Coumadin) 10 mg PO ONETIME ONE Stop: 09/17/19 09:00 Last Admin: 09/17/19 10:00 Dose: 10 mg - Exam Quality Assessment: Supplemental Oxygen General: Alert, Oriented Lungs: Crackles, Rales Cardiovascular: Regular Rate GI/Abdominal Exam: Non-Tender Extremities: Pedal Edema Sepsis Event Note - Evaluation Sepsis Screening Result: No Definite Risk - Focused Exam Vital Signs: Vital Signs Temp Pulse Pulse Resp BP BP Pulse Ox 09/18/19 07:33 73 149/83 H 09/18/19 07:30 36.1 C 73 17 149/83 H 95 09/18/19 00:00 36.8 C 65 18 170/77 H 94 L Date Exam was Performed: 09/18/19 Time Exam was Performed: 10:35 - Problem List Review Problem List Initiated/Reviewed/Updated: Yes - My Orders Last 24 Hours: My Active Orders 09/18/19 05:11 Chest 2V [CR] Routine - Assessment Assessment:: IMP: CHF Continue diuresis DVT Continue Coumadin and Lovenox - Plan Plan:: Plan: continue diuresis Continue Coumadin and Lovenox
--- NOTE | 2019-09-18 11:45 | PCM.PN ---
- General Info Date of Service: 09/18/19 Admission Dx/Problem (Free Text): CHF, SOB Diuresis on-going New DVT On Coumadin and Lovenox Subjective Update: Feels better - Review of Systems Pulmonary: Reports: Shortness of Breath Cardiovascular: Reports: No Symptoms - Patient Data Vitals - Most Recent: Last Vital Signs Temp 36.1 C 09/18/19 07:30 Pulse 73 09/18/19 07:33 Resp 17 09/18/19 07:30 BP 149/83 H 09/18/19 07:33 Pulse Ox 95 09/18/19 07:30 Weight - Most Recent: 93.213 kg I&O - Last 24 Hours: Intake & Output 09/18/19 09/18/19 09/18/19 02:59 10:59 18:59 Intake Total 100 Output Total 900 1250 Balance -900 -1150 Lab Results Last 24 Hours: Laboratory Results - last 24 hr 09/18/19 09/18/19 09/18/19 Range/Units 07:00 07:00 07:00 WBC 7.4 (4.0-10.2) K/uL RBC 4.52 (3.77-5.09) M/uL Hgb 11.5 L (11.7-15.5) g/dL Hct 38.0 (34.0-46.0) % MCV 84.1 (84.0-98.0) fL MCH 25.4 L (28.2-33.3) pg MCHC 30.3 L (31.7-36.0) g/dL RDW 15.2 H (11.2-14.1) % Plt Count 391 H (150-350) K/uL Neut % (Auto) 57.3 (45.0-80.0) % Lymph % (Auto) 28.6 (10.0-50.0) % [place] % (Auto) 10.7 (2.0-14.0) % Eos % (Auto) 3.0 (0.0-5.0) % Baso % (Auto) 0.4 (0.0-2.0) % Neut # (Auto) 4.23 (1.40-7.00) K/uL Lymph # (Auto) 2.11 (0.50-3.50) K/uL [place] # (Auto) 0.79 (0.00-1.00) K/uL Eos # (Auto) 0.22 (0.00-0.50) K/uL Baso # (Auto) 0.03 (0.00-0.20) K/uL PT 29.3 H D (9.5-12.0) SEC INR 2.7 Sodium 141 (136-145) mmol/L Potassium 4.5 (3.5-5.1) mmol/L Chloride 106 (98-107) mmol/L Carbon Dioxide 30.0 (21.0-32.0) mmol/L BUN 33 H (7-18) mg/dL Creatinine 1.10 (0.51-1.17) mg/dL Est Cr Clr Drug Dosing 35.43 mL/min Estimated GFR (MDRD) 48 mL/min Glucose 91 (74-106) mg/dL Calcium 8.5 (8.5-10.1) mg/dL Behzad Results Last 24 Hours: Microbiology 09/16/19 08:00 Helicobacter pylori Antigen - Final Stool / Feces Med Orders - Current: Current Medications Acetaminophen (Tylenol) 650 mg PO Q4H PRN PRN Reason: Pain Albuterol (Proventil Neb Soln) 2.5 mg NEB Q2H PRN PRN Reason: Dyspnea Albuterol/Ipratropium (Duoneb 3.0-0.5 Mg/3 Ml) 3 ml NEB Q4HRRT PRN PRN Reason: Dyspnea Last Admin: 09/16/19 21:29 Dose: 3 ml Benzonatate (Tessalon Perles) 100 mg PO Q8H PRN PRN Reason: Cough Last Admin: 09/17/19 22:36 Dose: 100 mg Budesonide (Pulmicort) 0.5 mg NEB BIDRT [facility] Last Admin: 09/18/19 07:32 Dose: 0.5 mg Diltiazem HCl (Cardizem Cd) 180 mg PO BEDTIME [facility] Last Admin: 09/17/19 20:37 Dose: 180 mg Furosemide (Lasix) 40 mg IVPUSH Q8H [facility] Last Admin: 09/16/19 10:15 Dose: Not Given Guaifenesin/Dextromethorphan (Mucinex Dm Er 600-30 Mg) 1 tab PO BID [facility] Last Admin: 09/18/19 07:33 Dose: 1 tab Losartan Potassium (Cozaar) 50 mg PO DAILY [facility] Last Admin: 09/18/19 07:33 Dose: 50 mg Metoprolol Succinate (Toprol Xl) 25 mg PO DAILY [facility] Last Admin: 09/18/19 07:33 Dose: 25 mg Omeprazole (Omeprazole) 20 mg PO DAILY [facility] Last Admin: 09/18/19 07:33 Dose: 20 mg Potassium Chloride (Klor-Con M20) 20 meq PO BIDMEALS [facility] Last Admin: 09/18/19 07:33 Dose: 20 meq Sodium Chloride (Saline Flush) 10 ml FLUSH ASDIRECTED PRN PRN Reason: Keep Vein Open Last Admin: 09/17/19 17:49 Dose: 10 ml Sodium Chloride (Saline Flush) 10 ml FLUSH Q12HR [facility] Last Admin: 09/18/19 07:35 Dose: 10 ml Temazepam (Restoril) 15 mg PO BEDTIME PRN PRN Reason: Insomnia Warfarin Sodium (Coumadin) 5 mg PO DAILY@1800 [facility] Discontinued Medications Albuterol/Ipratropium (Duoneb 3.0-0.5 Mg/3 Ml) 3 ml NEB Q6HRRT [facility] Last Admin: 09/16/19 07:30 Dose: 3 ml Enoxaparin Sodium (Lovenox) 100 mg SUBCUT Q24H [facility] Last Admin: 09/17/19 17:51 Dose: 100 mg Famotidine (Pepcid) 40 mg IVPUSH ONETIME ONE Stop: 09/15/19 14:00 Last Admin: 09/15/19 14:36 Dose: 40 mg Furosemide (Lasix) 40 mg IVPUSH BID@0800,1600 [facility] Last Admin: 09/18/19 07:34 Dose: 40 mg Iopamidol (Isovue-370 (76%)) 100 ml IVPUSH ONETIME ONE Stop: 09/15/19 15:00 Last Admin: 09/15/19 15:33 Dose: 100 ml Methylprednisolone Sodium Succinate (Solu-Medrol) 125 mg IVPUSH ONETIME ONE Stop: 09/15/19 17:43 Last Admin: 09/15/19 19:32 Dose: 125 mg Metoprolol Tartrate (Lopressor) 2.5 mg IVPUSH ONETIME ONE Stop: 09/15/19 17:39 Last Admin: 09/15/19 18:39 Dose: 2.5 mg Potassium Chloride (Klor-Con M20) 20 meq PO TID [facility] Last Admin: 09/16/19 07:30 Dose: 20 meq Sodium Chloride (Saline Flush) 10 ml FLUSH Q12HR PRN PRN Reason: Keep Vein Open Warfarin Sodium (Coumadin) 10 mg PO ONETIME ONE Stop: 09/15/19 17:33 Last Admin: 09/15/19 18:38 Dose: 10 mg Warfarin Sodium (Coumadin) 10 mg PO ONETIME ONE Stop: 09/16/19 10:07 Last Admin: 09/16/19 10:28 Dose: 10 mg Warfarin Sodium (Coumadin) 10 mg PO ONETIME ONE Stop: 09/17/19 09:00 Last Admin: 09/17/19 10:00 Dose: 10 mg - Exam Quality Assessment: Supplemental Oxygen Neck: Supple Lungs: Decreased Breath Sounds Cardiovascular: Regular Rate Extremities: Pedal Edema Sepsis Event Note - Evaluation Sepsis Screening Result: No Definite Risk - Focused Exam Vital Signs: Vital Signs Temp Pulse Pulse Resp BP BP Pulse Ox 09/18/19 07:33 73 149/83 H 09/18/19 07:30 36.1 C 73 17 149/83 H 95 09/18/19 00:00 36.8 C 65 18 170/77 H 94 L Date Exam was Performed: 09/18/19 Time Exam was Performed: 11:42 - Problem List Review Problem List Initiated/Reviewed/Updated: Yes - My Orders Last 24 Hours: My Active Orders 09/18/19 05:11 Chest 2V [CR] Routine 09/18/19 18:00 Warfarin [Coumadin] 5 mg PO DAILY@1800 - Assessment Assessment:: IMP: CHF Hold Lasix today DVT Continue Coumadin at 5mg today - Plan Plan:: Plan: Hold Lasix today as BUN as increased Continue Coumadin at 5 mg today Recheck lab in AM
[2019-09-18] MEDS ORDERED: Warfarin 5 MG Tab PO SCH (18:00)
[2019-09-18] MEDS: Diltiazem 180 MG Cap.CD PO SCH (20:04)
[2019-09-19 07:36] VITALS: PULSE 70
[2019-09-19] MEDS: Potassium Chloride 20 MEQ Tab.ER PO SCH (07:36)
[2019-09-19] MEDS: Metoprolol Succinate 25 MG Tab.ER PO SCH (07:36)
[2019-09-19 07:37] VITALS: BP 129/78
[2019-09-19] MEDS: Budesonide 0.5 MG/2 ML Neb Susp NEB SCH (07:37)
[2019-09-19] MEDS: Dextromethorphan/guaiFENesin 600-30 MG Tab.ER PO SCH (07:37)
[2019-09-19] MEDS: Losartan 50 MG Tab PO SCH (07:37)
[2019-09-19] MEDS: Omeprazole 20 MG Cap.CR PO SCH (07:37)
[2019-09-19] MEDS: Sodium Chloride 0.9% 10 ML Syringe FLUSH SCH (07:37)
--- NOTE | 2019-09-19 10:50 | PCM.DCSUM1 ---
Discharge Summary - Hospital Course HPI Initial Comments: See emergency room note/admission H&P Brief History: See emergency room note/admission H&P Diagnosis: Stroke: No Modified [place] Scale: No Symptoms at All Modified [place] Scale Score: 0 - Discharge Data Discharge Date: 09/19/19 Discharge Disposition: Home, Self-Care 01 Condition: Good - Referral to Home Health Primary Care Physician: Maryana Cote PA-C - Discharge Diagnosis/Problem(s) (1) CHF (congestive heart failure) SNOMED Code(s): 81062514 ICD Code: I50.9 - HEART FAILURE, UNSPECIFIED Status: Acute Priority: High Current Visit: Yes Onset Date: 09/15/19 Problem Details: Newly diagnosed on admission with Echocardiogram to be performed on an outpatient basis as per discharge instructions. Note that patient's mild arrhythmia may have contributed to patient's CHF with no chest pain or anginal type symptoms prior to admission or during this hospitalization. Note negative workup for acute [place] during this hospitalization with BNP normalized at time of discharge. Initiated IV Lasix therapy with caution during this hospitalization secondary to her previous history of renal insufficiency, which remained stable during the entire hospital course. Continue previous oral Lasix dose for now with possible increase of this medication and additional potassium supplementation at time of follow-up depending on blood work results. No chest pain or anginal type symptoms on arrival to the emergency room with chest pain protocol not initiated. Further Cardiology consultation depending on her clinical course. Consider Cardiolite stress test on an outpatient basis. The patient is already on losartan. Low-dose Toprol-XL therapy was initiated on admission with 2 tablets provided at discharge secondary to weekend with further medications to be provided by regular provider at discharge. Qualifiers: Heart failure type: unspecified Heart failure chronicity: acute Qualified Code(s): I50.9 - Heart failure, unspecified (2) D-dimer, elevated SNOMED Code(s): 373873752 ICD Code: R79.89 - OTHER SPECIFIED ABNORMAL FINDINGS OF BLOOD CHEMISTRY Status: Acute Priority: High Current Visit: Yes Onset Date: 09/15/19 Problem Details: Note CTA of the chest was negative for PE, however follow-up of mediastinal lymphadenopathy and left upper lobe pulmonary nodule was recommended by the radiologist. Venous Doppler studies of the lower extremity results indicated a probable distal right femoral DVT per verbal report from the electromechanical technician, although the radiologist said that this evaluation was inconclusive recommended further follow-up and repeat study as per discharge instructions. Initiated Lovenox on admission with additional initiation of loading dose of Coumadin and further Coumadin titration during this hospitalization. Some Coumadin teaching was given during this hospitalization and at discharge. Note that the patient's is already on Coumadin. (3) DVT (deep venous thrombosis) SNOMED Code(s): 826544308 ICD Code: I82.409 - ACUTE EMBOLISM AND THOMBOS UNSP DEEP VN UNSP LOWER EXTREMITY Status: Acute Priority: High Current Visit: Yes Onset Date: Problem Details: As above. Note that subcutaneous Lovenox at VTE dose was discontinued on 09/17 with therapeutic INR at time of discharge. Qualifiers: DVT location: lower extremity Affected thrombotic vein of extremity: femoral Chronicity: acute Laterality: right Qualified Code(s): I82.411 - Acute embolism and thrombosis of right femoral vein (4) Pulmonary nodule SNOMED Code(s): 993703036 ICD Code: R91.1 - SOLITARY PULMONARY NODULE Status: Chronic Priority: Medium Current Visit: Yes Problem Details: Recommended follow-up as per radiology with mediastinal lymphadenopathy noted and previous history of cancer as above. (5) PAC (premature atrial contraction) SNOMED Code(s): 704820715 ICD Code: I49.1 - ATRIAL PREMATURE DEPOLARIZATION Status: Acute Priority : High Current Visit: Yes Onset Date: 09/15/19 Problem Details: Frequent PACs with moderate sinus arrhythmia during this hospitalization has improved with low-dose Toprol XL therapy as above. Note current diltiazem therapy. Low- dose IV Lopressor was also given in the emergency room. (6) Cardiac murmur SNOMED Code(s): 11820792 ICD Code: R01.1 - CARDIAC MURMUR, UNSPECIFIED Status: Chronic Priority: High Current Visit: Yes Problem Details: Previously progressive moderate aortic valve stenosis and mitral valve insufficiency by clinical exam with stable exam during this hospitalization since my last evaluation on 03/06/19. Echocardiogram to be conducted on an outpatient basis especially in light of her newly diagnosed CHF as above. Note dependent edema on admission, which did resolve at time of discharge. (7) Hypertension SNOMED Code(s): 01813112 ICD Code: I10 - ESSENTIAL (PRIMARY) HYPERTENSION Status: Chronic Priority : Medium Current Visit: Yes Problem Details: Blood pressures somewhat elevated in the emergency room however much improved during this hospitalization. Continue to observe closely by her regular providers. Qualifiers: Hypertension type: essential hypertension Qualified Code(s): I10 - Essential (primary) hypertension (8) Asthma SNOMED Code(s): 542497833 ICD Code: J45.909 - UNSPECIFIED ASTHMA, UNCOMPLICATED Status: Chronic Priority: Medium Current Visit: Yes Problem Details: Chronic cough likely secondary to her mild CHF. Additional asthma versus COPD with no recent fever or other true bronchitic type symptoms. IM Depo-Medrol on admission with Mucinex DM during this hospitalization. Unable to obtain sputum specimen during this hospitalization. Nebulizer therapy during this hospitalization with consideration of initiating nebulizer therapy by her regular provider at discharge. Consider PFTs depending on her clinical course. Qualifiers: Asthma severity: moderate Asthma persistence: unspecified Asthma complication type: uncomplicated Qualified Code(s): J45.909 - Unspecified asthma, uncomplicated (9) Osteoarthritis SNOMED Code(s): 471050458 ICD Code: M19.90 - UNSPECIFIED OSTEOARTHRITIS, UNSPECIFIED SITE Status: Chronic Priority: Medium Current Visit: Yes Problem Details: Stable by history Qualifiers: Osteoarthritis location: multiple joints Osteoarthritis type: primary Qualified Code(s): M15.0 - Primary generalized (osteo)arthritis (10) Hyperlipidemia SNOMED Code(s): 03340793 ICD Code: E78.5 - HYPERLIPIDEMIA, UNSPECIFIED Status: Chronic Priority: Medium Current Visit: Yes Problem Details: Lipid panel mildly elevated during this hospitalization with normal glycosylated hemoglobin on 09/16/19. No current medical therapy with weight loss in moderation advised. She may benefit from a statin. Close follow-up by regular provider. Qualifiers: Hyperlipidemia type: unspecified Qualified Code(s): E78.5 - Hyperlipidemia , unspecified (11) Peptic reflux disease SNOMED Code(s): 845094654 ICD Code: K21.9 - GASTRO-ESOPHAGEAL REFLUX DISEASE WITHOUT ESOPHAGITIS Status: Chronic Priority: Medium Current Visit: Yes Problem Details: Stable by history with high-dose IV Pepcid given in the emergency room as GI prophylaxis. (12) Renal insufficiency SNOMED Code(s): 479683034, 837389407 ICD Code: N28.9 - DISORDER OF KIDNEY AND URETER, UNSPECIFIED Status: Acute Priority: High Current Visit: Yes Onset Date: 03/06/19 Problem Details : As above (13) Hypoalbuminemia SNOMED Code(s): 764944470 ICD Code: E88.09 - OTH DISORDERS OF PLASMA-PROTEIN METABOLISM, NEC Status: Acute Priority: Medium Current Visit: Yes Onset Date: 09/15/19 Problem Details: Observe for now with stable decreased albumin levels during this hospitalization. Consider high-protein Glucerna supplements as snack, however weight loss in moderation is advisable. (14) Microcytic anemia SNOMED Code(s): 824281252 ICD Code: D50.9 - IRON DEFICIENCY ANEMIA, UNSPECIFIED Status: Acute Priority: Medium Current Visit: Yes Onset Date: 03/06/19 Problem Details: Iron and vitamin B-12 deficiencies newly diagnosed during this hospitalization, however supplements were not initiated by on-call provider. Iron sulfate and bunion B-12 will be initiated at discharge with repeat vitamin B-12 and iron studies recommended in one month. Continue to observe her INRs closely secondary to newly initiated supplements as above. Note pevious mild renal insufficiency. No evidence of GI bleed, etc. Note negative H. pylori stool antigen during this hospitalization. (15) Hypocalcemia SNOMED Code(s): 2497999 ICD Code: E83.51 - HYPOCALCEMIA Status: Acute Priority: Medium Current Visit: Yes Onset Date: ~09/19/19 Problem Details: Observe for now. - Patient Summary/Data Operative Procedure(s) Performed: None Complications: None Consults: None Labs Pending at D/C: None Recommended Follow-up Testing/Procedures: As per discharge instructions Planned Operative Procedure(s) after DC: None Hospital Course: The patient was admitted to inpatient/acute care on telemetry with negative workup for acute [place]. Note newly diagnosed probable right leg DVT with initial treatment with subcutaneous Lovenox and loading of Coumadin with therapeutic INR at time of discharge. Otherwise, aggressive treatment of her CHF and mild sinus arrhythmia and PACs as above. Close follow-up by regular providers as per discharge instructions. - Patient Instructions Diet: Full Liquid Diet Diet, Other: Heart Healthy, diverticulosis Fluid Restriction: 2000 mL Activity: As Tolerated Driving: May Drive Today Showering/Bathing: May Shower Notify Provider of: Fever, Increased Pain, Swelling and Redness, Nausea and/or Vomiting Other/Special Instructions: 1. Followup with your regular provider on 09/21 for reevaluation and recommended CBC, d-dimer, BNP, troponin I, CK, CK-MB, comprehensive metabolic panel, and INR as directed. Bring these discharge instructions with you to that visit. 2. Strict no as needed Tylenol, ibuprofen , Aleve, or other NSAIDs with continuation of dietary restrictions as discussed secondary to your newly initiated Coumadin therapy with close follow-up of your INR serially regular provider. 3. TIBC panel, ferritin level, and vitamin B 12 level should be repeated in about 4 weeks. 4. Venous Doppler studies of the lower extremities and repeat CT of the chest with IV contrast should be repeated in 13 months as follow-up for your probable right leg blood clot and pulmonary nodule. 5. Echocardiogram in this facility on 09/22 with results to be discussed with your regular provider when available. 6. Obtain new prescriptions for your warfarin and Toprol-XL at follow-up with your regular provider on 09/21. 7. Discuss possible lung function test/PFTs and possible initiation of home nebulizer therapy with your regular provider at follow-up. 8. Immediately after this visit verify that your cellular telephone's voicemail has been activated and is empty. Also verify that your home telephone 's answering machine is operating properly and has space to receive messages. Note that it is sometimes necessary for us to be able to contact you at a later date to discuss your medical care. 9. Please remember that we are ALWAYS here for you and want to answer any questions you may have. Feel free to call the hospital any time and we call you back SIDRA. 10. Your furosemide will now be taken on a daily basis rather then as needed with possible additional potassium chloride tablets needed at time of follow-up depending on blood work results as above. 11. Fall and injury precautions secondary to your Coumadin therapy as discussed. - Discharge Plan *PRESCRIPTION DRUG MONITORING PROGRAM REVIEWED*: Not Applicable *COPY OF PRESCRIPTION DRUG MONITORING REPORT IN PATIENT AMARI: Not Applicable Prescriptions/Med Rec: Cyanocobalamin (Vitamin B-12) [Vitamin B-12] 1,000 mcg PO DAILY #30 tablet Ferrous Sulfate 325 mg PO BIDMEALS #60 tablet Furosemide 40 mg PO DAILY #1 tablet Metoprolol Succinate [Toprol XL] 25 mg PO DAILY #2 tab.er Warfarin Sodium [Coumadin] 1 mg PO QPM #10 tablet Home Medications: Home Meds Albuterol [Proventil HFA] 2 puff INH Q4H PRN 06/20/17 [History] Fluticasone Propionate [Flovent HFA 100 mcg] 2 puff IH BID 06/20/17 [History] Diltiazem [Cardizem CD] 180 mg PO BEDTIME 09/15/19 [History] Losartan [Cozaar] 50 mg PO QAM 09/15/19 [History] Omeprazole 20 mg PO DAILY 09/15/19 [History] Cyanocobalamin (Vitamin B-12) [Vitamin B-12] 1,000 mcg PO DAILY #30 tablet 09/19 [Rx] Ferrous Sulfate 325 mg PO BIDMEALS #60 tablet 09/19/19 [Rx] Furosemide 40 mg PO DAILY #1 tablet 09/19/19 [Rx] Metoprolol Succinate [Toprol XL] 25 mg PO DAILY #2 tab.er 09/19/19 [Rx] Warfarin Sodium [Coumadin] 1 mg PO QPM #10 tablet 09/19/19 [Rx] Oxygen Therapy Mode: Room Air Patient Handouts: Furosemide tablets, Vitamin K Foods and Warfarin, Metoprolol extended-release tablets, What You Need to Know About Warfarin, How to Use a Nebulizer, Adult, Enoxaparin injection, Warfarin tablets, Heart Failure, Easy-to -Read, Heart Failure, Deep Vein Thrombosis Forms: ED Department Discharge Referrals: Maryana Cote PA-C [Primary Care Provider] - - Discharge Summary/Plan Comment DC Time >30 min.: Yes (Coordination of care ) Discharge Summary/Plan Comment: As above. Extensive precautions were given to the patient, who is in agreement with the treatment plan. See Patient Instructions for further treatment and plan. - General Info Admission Dx/Problem (Free Text: 1. CHF 2. DVT-right leg 3. PACs Functional Status: Reports: Pain Controlled, Tolerating Diet, Ambulating, Urinating, Incentive Spirometry. Denies: New Symptoms Numeric/FACES Score: 0 - Review of Systems General: Reports: No Symptoms. Denies: Fever, Weakness, Fatigue, Malaise, Chills, Night Sweats, Appetite (Good) HEENT: Reports: No Symptoms. Denies: Dysphasia, Ear Pain, Eye Pain, Glasses, Headaches, Sinus Congestion, Sore Throat, Rhinitis, Visual Changes Pulmonary: Reports: Cough. Denies: Shortness of Breath, Pleuritic Chest Pain, Sputum, Hemoptysis, Wheezing Cardiovascular: Reports: No Symptoms. Denies: Chest Pain, Palpitations, Dyspnea on Exertion, Orthopnea, PND, Edema, Lightheadedness Gastrointestinal: Reports: No Symptoms, Other (Normal Bowel movement today). Denies: Abdominal Pain, Constipation, Decreased Appetite, Diarrhea, Difficulty Swallowing, Flatus, Hematochezia, Melena, Nausea, Vomiting Genitourinary: Reports: No Symptoms. Denies: Dysuria, Frequency, Burning, Pain , Urgency, Incontinence, Hematuria, Retention, Flank Pain Musculoskeletal: Reports: No Symptoms. Denies: Neck Pain, Shoulder Pain, Arm Pain, Leg Pain Skin: Reports: No Symptoms. Denies: Diaphoresis, Bruising, Pruritis, Rash Neurological: Reports: No Symptoms. Denies: Confusion, Dizziness, Numbness, Paresthesia, Tingling, Weakness Psychiatric: Reports: No Symptoms. Denies: Depression, Anxiety, Agitation, Cravings, Hallucinations, Homicidal Ideation - Patient Data Vitals - Most Recent: Last Vital Signs Temp 36.8 C 09/19/19 07:35 Pulse 70 09/19/19 07:36 Resp 20 09/19/19 07:35 BP 129/78 09/19/19 07:37 Pulse Ox 95 09/19/19 07:35 Vital Signs - 24 hr 09/18/19 09/18/19 09/19/19 16:00 20:00 07:35 Temperature [ 36.5 C 37.1 C 36.8 C Temporal] Pulse, Peripheral Pulse, 68 68 70 Peripheral [ Left Pulse Oximetry] Respiratory 16 16 20 Rate Blood Pressure Blood Pressure 154/75 H 157/67 H 137/107 H [Right Upper Arm] O2 Sat by Pulse 96 95 95 Oximetry 09/19/19 09/19/19 07:36 07:37 Temperature [ Temporal] Pulse, 70 Peripheral Pulse, Peripheral [ Left Pulse Oximetry] Respiratory Rate Blood Pressure 129/78 129/78 Blood Pressure [Right Upper Arm] O2 Sat by Pulse Oximetry Weight - Most Recent: 93.213 kg I&O - Last 24 hours: Intake & Output 09/18/19 09/19/19 09/19/19 22:59 06:59 14:59 Intake Total 660 100 Output Total 350 300 Balance 310 -200 Imaging Impressions - Last 24 hrs: monitoring tech initially showed sinus arrhythmia and frequent PACs with significant improvement prior to discharge with only occasional PACs and normal sinus rhythm in the high 50s to low 60s with no significant other ectopy or arrhythmia Chest x-ray, PA and lateral, report on 09/18/19 showed no evidence of significant CHF, pulmonary infiltrates, etc. My initial interpretation of chest x-ray, portable, on admission on 09/15 showed mild centralized CHF and cardiomegaly with somewhat prominent aortic arch. Mild to moderate pulmonary obstructive disease with no significant pulmonary infiltrates, pneumothorax, etc. CTA chest using PE protocol on 09/15/19 was negative for acute PE with somewhat progressive left lower lobe pulmonary nodule and some mediastinal lymphadenopathy with follow-up recommended by the radiologist. Preliminary verbal report was not received from the radiologist despite previous request. Preliminary verbal report from [facility], on 09/15/19 concerning bilateral venous Doppler studies of the lower extremities, which were positive for a DVT in the right lower mid to distal femoral vein. Note final radiological report states that this finding was inconclusive, however. Serial EKGs 2 with no evidence of acute ischemic changes with resolution of previous PACs and sinus arrhythmia. Lab Results - Last 24 hrs: Laboratory Results - last 24 hr 09/19/19 09/19/19 09/19/19 Range/Units 06:52 06:52 06:52 WBC 8.0 (4.0-10.2) K/uL RBC 4.72 (3.77-5.09) M/uL Hgb 12.1 (11.7-15.5) g/dL Hct 39.8 (34.0-46.0) % MCV 84.3 (84.0-98.0) fL MCH 25.6 L (28.2-33.3) pg MCHC 30.4 L (31.7-36.0) g/dL RDW 15.2 H (11.2-14.1) % Plt Count 408 H (150-350) K/uL Neut % (Auto) 61.2 (45.0-80.0) % Lymph % (Auto) 21.8 (10.0-50.0) % [place] % (Auto) 11.0 (2.0-14.0) % Eos % (Auto) 5.6 H (0.0-5.0) % Baso % (Auto) 0.4 (0.0-2.0) % Neut # (Auto) 4.92 (1.40-7.00) K/uL Lymph # (Auto) 1.75 (0.50-3.50) K/uL [place] # (Auto) 0.88 (0.00-1.00) K/uL Eos # (Auto) 0.45 (0.00-0.50) K/uL Baso # (Auto) 0.03 (0.00-0.20) K/uL PT 26.2 H (9.5-12.0) SEC INR 2.4 Sodium 142 (136-145) mmol/L Potassium 4.5 (3.5-5.1) mmol/L Chloride 107 (98-107) mmol/L Carbon Dioxide 30.0 (21.0-32.0) mmol/L BUN 34 H (7-18) mg/dL Creatinine 1.09 (0.51-1.17) mg/dL Est Cr Clr Drug Dosing 35.75 mL/min Estimated GFR (MDRD) 49 mL/min Glucose 99 (74-106) mg/dL Calcium 8.4 L (8.5-10.1) mg/dL Total Bilirubin 0.2 (0.2-1.0) mg/dL AST 32 (15-37) U/L ALT 36 (12-78) U/L Alkaline Phosphatase 94 (46-116) IU/L NT-Pro-B Natriuret Pep 110 (0-125) pg/mL Total Protein 7.5 (6.4-8.2) g/dL Albumin 3.1 L (3.4-5.0) g/dL Laboratory Tests 09/15/19 09/15/19 09/15/19 Range/Units 09:15 14:09 14:09 WBC 7.1 (4.0-10.2) K/uL RBC 4.25 (3.77-5.09) M/uL Hgb 10.8 L (11.7-15.5) g/dL Hct 35.8 (34.0-46.0) % MCV 84.2 D (84.0-98.0) fL MCH 25.4 L (28.2-33.3) pg MCHC 30.2 L (31.7-36.0) g/dL RDW 14.9 H (11.2-14.1) % Plt Count 404 H D (150-350) K/uL Neut % (Auto) 60.2 (45.0-80.0) % Lymph % (Auto) 21.3 (10.0-50.0) % [place] % (Auto) 12.8 (2.0-14.0) % Eos % (Auto) 5.0 (0.0-5.0) % Baso % (Auto) 0.7 (0.0-2.0) % Neut # (Auto) 4.29 (1.40-7.00) K/uL Lymph # (Auto) 1.52 (0.50-3.50) K/uL [place] # (Auto) 0.91 (0.00-1.00) K/uL Eos # (Auto) 0.36 (0.00-0.50) K/uL Baso # (Auto) 0.05 (0.00-0.20) K/uL PT 10.6 (9.5-12.0) SEC INR 1.0 APTT 31.5 H (21.0-31.3) SEC D-Dimer, Quantitative (0-400) ng/mL Sodium (136-145) mmol/L Potassium (3.5-5.1) mmol/L Chloride (98-107) mmol/L Carbon Dioxide (21.0-32.0) mmol/L BUN (7-18) mg/dL Creatinine (0.51-1.17) mg/dL Est Cr Clr Drug Dosing mL/min Estimated GFR (MDRD) mL/min Glucose (74-106) mg/dL Hemoglobin A1c (4.3-5.7) % Lactic Acid (0.4-2.0) mmol/L Uric Acid (2.6-7.2) mg/dL Calcium (8.5-10.1) mg/dL Magnesium (1.8-2.4) mg/dL Iron (50-175) ug/dL TIBC (250-450) ug/dL % Saturation Ferritin (8-388) ng/mL Total Bilirubin (0.2-1.0) mg/dL AST (15-37) U/L ALT (12-78) U/L Alkaline Phosphatase (46-116) IU/L Creatine Kinase 144 (26-308) U/L Creatine Kinase Index 0.6 (0.0-2.5) % CK-MB (CK-2) 0.90 (0.00-3.60) ng/mL Troponin I 0.000 (0.000-0.056) ng/mL NT-Pro-B Natriuret Pep (0-125) pg/mL Total Protein (6.4-8.2) g/dL Albumin (3.4-5.0) g/dL Triglycerides (30-150) mg/dL Cholesterol (100-200) mg/dL LDL Cholesterol, Calc (0-100) mg/dL HDL Cholesterol (40-60) mg/dL Vitamin B12 (193-986) pg/mL TSH, Ultra Sensitive (0.358-3.740) mIU/mL 09/15/19 09/15/19 09/15/19 Range/Units 14:09 14:09 14:09 WBC (4.0-10.2) K/uL RBC (3.77-5.09) M/uL Hgb (11.7-15.5) g/dL Hct (34.0-46.0) % MCV (84.0-98.0) fL MCH (28.2-33.3) pg MCHC (31.7-36.0) g/dL RDW (11.2-14.1) % Plt Count (150-350) K/uL Neut % (Auto) (45.0-80.0) % Lymph % (Auto) (10.0-50.0) % [place] % (Auto) (2.0-14.0) % Eos % (Auto) (0.0-5.0) % Baso % (Auto) (0.0-2.0) % Neut # (Auto) (1.40-7.00) K/uL Lymph # (Auto) (0.50-3.50) K/uL [place] # (Auto) (0.00-1.00) K/uL Eos # (Auto) (0.00-0.50) K/uL Baso # (Auto) (0.00-0.20) K/uL PT (9.5-12.0) SEC INR APTT (21.0-31.3) SEC D-Dimer, Quantitative 801 H (0-400) ng/mL Sodium 142 (136-145) mmol/L Potassium 3.7 (3.5-5.1) mmol/L Chloride 107 (98-107) mmol/L Carbon Dioxide 26.4 (21.0-32.0) mmol/L BUN 12 (7-18) mg/dL Creatinine 0.92 (0.51-1.17) mg/dL Est Cr Clr Drug Dosing 42.36 mL/min Estimated GFR (MDRD) 59 mL/min Glucose 110 H (74-106) mg/dL Hemoglobin A1c (4.3-5.7) % Lactic Acid 0.9 (0.4-2.0) mmol/L Uric Acid 2.9 (2.6-7.2) mg/dL Calcium 8.6 (8.5-10.1) mg/dL Magnesium 1.9 (1.8-2.4) mg/dL Iron (50-175) ug/dL TIBC (250-450) ug/dL % Saturation Ferritin (8-388) ng/mL Total Bilirubin 0.2 (0.2-1.0) mg/dL AST 18 (15-37) U/L ALT 16 (12-78) U/L Alkaline Phosphatase 109 (46-116) IU/L Creatine Kinase 131 (26-308) U/L Creatine Kinase Index 0.7 (0.0-2.5) % CK-MB (CK-2) 0.90 (0.00-3.60) ng/mL Troponin I 0.000 (0.000-0.056) ng/mL NT-Pro-B Natriuret Pep 371 H (0-125) pg/mL Total Protein 7.5 (6.4-8.2) g/dL Albumin 3.0 L (3.4-5.0) g/dL Triglycerides (30-150) mg/dL Cholesterol (100-200) mg/dL LDL Cholesterol, Calc (0-100) mg/dL HDL Cholesterol (40-60) mg/dL Vitamin B12 (193-986) pg/mL TSH, Ultra Sensitive 0.892 (0.358-3.740) mIU/mL 09/16/19 09/16/19 09/16/19 Range/Units 07:20 07:20 07:20 WBC 5.5 (4.0-10.2) K/uL RBC 4.52 (3.77-5.09) M/uL Hgb 11.6 L (11.7-15.5) g/dL Hct 37.5 (34.0-46.0) % MCV 83.0 L (84.0-98.0) fL MCH 25.7 L (28.2-33.3) pg MCHC 30.9 L (31.7-36.0) g/dL RDW 14.9 H (11.2-14.1) % Plt Count 428 H (150-350) K/uL Neut % (Auto) 88.0 H (45.0-80.0) % Lymph % (Auto) 10.3 (10.0-50.0) % [place] % (Auto) 1.5 L (2.0-14.0) % Eos % (Auto) 0.0 (0.0-5.0) % Baso % (Auto) 0.2 (0.0-2.0) % Neut # (Auto) 4.85 (1.40-7.00) K/uL Lymph # (Auto) 0.57 (0.50-3.50) K/uL [place] # (Auto) 0.08 (0.00-1.00) K/uL Eos # (Auto) 0.00 (0.00-0.50) K/uL Baso # (Auto) 0.01 (0.00-0.20) K/uL PT (9.5-12.0) SEC INR APTT (21.0-31.3) SEC D-Dimer, Quantitative (0-400) ng/mL Sodium 142 (136-145) mmol/L Potassium 4.1 (3.5-5.1) mmol/L Chloride 104 (98-107) mmol/L Carbon Dioxide 27.5 (21.0-32.0) mmol/L BUN 15 (7-18) mg/dL Creatinine 0.91 (0.51-1.17) mg/dL Est Cr Clr Drug Dosing 42.83 mL/min Estimated GFR (MDRD) 60 mL/min Glucose 184 H (74-106) mg/dL Hemoglobin A1c 5.7 (4.3-5.7) % Lactic Acid (0.4-2.0) mmol/L Uric Acid (2.6-7.2) mg/dL Calcium 9.1 (8.5-10.1) mg/dL Magnesium (1.8-2.4) mg/dL Iron (50-175) ug/dL TIBC (250-450) ug/dL % Saturation Ferritin (8-388) ng/mL Total Bilirubin 0.1 L (0.2-1.0) mg/dL AST 16 (15-37) U/L ALT 18 (12-78) U/L Alkaline Phosphatase 103 (46-116) IU/L Creatine Kinase 93 (26-308) U/L Creatine Kinase Index 0.9 (0.0-2.5) % CK-MB (CK-2) 0.80 (0.00-3.60) ng/mL Troponin I 0.000 (0.000-0.056) ng/mL NT-Pro-B Natriuret Pep 714 H (0-125) pg/mL Total Protein 7.9 (6.4-8.2) g/dL Albumin 3.1 L (3.4-5.0) g/dL Triglycerides 55 (30-150) mg/dL Cholesterol 195 (100-200) mg/dL LDL Cholesterol, Calc 135 H (0-100) mg/dL HDL Cholesterol 49 (40-60) mg/dL Vitamin B12 177 L (193-986) pg/mL TSH, Ultra Sensitive (0.358-3.740) mIU/mL 09/16/19 09/16/19 09/18/19 Range/Units 07:20 07:20 07:00 WBC (4.0-10.2) K/uL RBC (3.77-5.09) M/uL Hgb (11.7-15.5) g/dL Hct (34.0-46.0) % MCV (84.0-98.0) fL MCH (28.2-33.3) pg MCHC (31.7-36.0) g/dL RDW (11.2-14.1) % Plt Count (150-350) K/uL Neut % (Auto) (45.0-80.0) % Lymph % (Auto) (10.0-50.0) % [place] % (Auto) (2.0-14.0) % Eos % (Auto) (0.0-5.0) % Baso % (Auto) (0.0-2.0) % Neut # (Auto) (1.40-7.00) K/uL Lymph # (Auto) (0.50-3.50) K/uL [place] # (Auto) (0.00-1.00) K/uL Eos # (Auto) (0.00-0.50) K/uL Baso # (Auto) (0.00-0.20) K/uL PT 11.4 29.3 H D (9.5-12.0) SEC INR 1.1 2.7 APTT (21.0-31.3) SEC D-Dimer, Quantitative (0-400) ng/mL Sodium (136-145) mmol/L Potassium (3.5-5.1) mmol/L Chloride (98-107) mmol/L Carbon Dioxide (21.0-32.0) mmol/L BUN (7-18) mg/dL Creatinine (0.51-1.17) mg/dL Est Cr Clr Drug Dosing mL/min Estimated GFR (MDRD) mL/min Glucose (74-106) mg/dL Hemoglobin A1c (4.3-5.7) % Lactic Acid (0.4-2.0) mmol/L Uric Acid (2.6-7.2) mg/dL Calcium (8.5-10.1) mg/dL Magnesium (1.8-2.4) mg/dL Iron 16 L (50-175) ug/dL TIBC 297 (250-450) ug/dL % Saturation [id number] Ferritin 35 (8-388) ng/mL Total Bilirubin (0.2-1.0) mg/dL AST (15-37) U/L ALT (12-78) U/L Alkaline Phosphatase (46-116) IU/L Creatine Kinase (26-308) U/L Creatine Kinase Index (0.0-2.5) % CK-MB (CK-2) (0.00-3.60) ng/mL Troponin I (0.000-0.056) ng/mL NT-Pro-B Natriuret Pep (0-125) pg/mL Total Protein (6.4-8.2) g/dL Albumin (3.4-5.0) g/dL Triglycerides (30-150) mg/dL Cholesterol (100-200) mg/dL LDL Cholesterol, Calc (0-100) mg/dL HDL Cholesterol (40-60) mg/dL Vitamin B12 (193-986) pg/mL TSH, Ultra Sensitive (0.358-3.740) mIU/mL 09/18/19 09/18/19 09/19/19 Range/Units 07:00 07:00 06:52 WBC 7.4 (4.0-10.2) K/uL RBC 4.52 (3.77-5.09) M/uL Hgb 11.5 L (11.7-15.5) g/dL Hct 38.0 (34.0-46.0) % MCV 84.1 (84.0-98.0) fL MCH 25.4 L (28.2-33.3) pg MCHC 30.3 L (31.7-36.0) g/dL RDW 15.2 H (11.2-14.1) % Plt Count 391 H (150-350) K/uL Neut % (Auto) 57.3 (45.0-80.0) % Lymph % (Auto) 28.6 (10.0-50.0) % [place] % (Auto) 10.7 (2.0-14.0) % Eos % (Auto) 3.0 (0.0-5.0) % Baso % (Auto) 0.4 (0.0-2.0) % Neut # (Auto) 4.23 (1.40-7.00) K/uL Lymph # (Auto) 2.11 (0.50-3.50) K/uL [place] # (Auto) 0.79 (0.00-1.00) K/uL Eos # (Auto) 0.22 (0.00-0.50) K/uL Baso # (Auto) 0.03 (0.00-0.20) K/uL PT 26.2 H (9.5-12.0) SEC INR 2.4 APTT (21.0-31.3) SEC D-Dimer, Quantitative (0-400) ng/mL Sodium 141 (136-145) mmol/L Potassium 4.5 (3.5-5.1) mmol/L Chloride 106 (98-107) mmol/L Carbon Dioxide 30.0 (21.0-32.0) mmol/L BUN 33 H (7-18) mg/dL Creatinine 1.10 (0.51-1.17) mg/dL Est Cr Clr Drug Dosing 35.43 mL/min Estimated GFR (MDRD) 48 mL/min Glucose 91 (74-106) mg/dL Hemoglobin A1c (4.3-5.7) % Lactic Acid (0.4-2.0) mmol/L Uric Acid (2.6-7.2) mg/dL Calcium 8.5 (8.5-10.1) mg/dL Magnesium (1.8-2.4) mg/dL Iron (50-175) ug/dL TIBC (250-450) ug/dL % Saturation Ferritin (8-388) ng/mL Total Bilirubin (0.2-1.0) mg/dL AST (15-37) U/L ALT (12-78) U/L Alkaline Phosphatase (46-116) IU/L Creatine Kinase (26-308) U/L Creatine Kinase Index (0.0-2.5) % CK-MB (CK-2) (0.00-3.60) ng/mL Troponin I (0.000-0.056) ng/mL NT-Pro-B Natriuret Pep (0-125) pg/mL Total Protein (6.4-8.2) g/dL Albumin (3.4-5.0) g/dL Triglycerides (30-150) mg/dL Cholesterol (100-200) mg/dL LDL Cholesterol, Calc (0-100) mg/dL HDL Cholesterol (40-60) mg/dL Vitamin B12 (193-986) pg/mL TSH, Ultra Sensitive (0.358-3.740) mIU/mL 09/19/19 09/19/19 Range/Units 06:52 06:52 WBC 8.0 (4.0-10.2) K/uL RBC 4.72 (3.77-5.09) M/uL Hgb 12.1 (11.7-15.5) g/dL Hct 39.8 (34.0-46.0) % MCV 84.3 (84.0-98.0) fL MCH 25.6 L (28.2-33.3) pg MCHC 30.4 L (31.7-36.0) g/dL RDW 15.2 H (11.2-14.1) % Plt Count 408 H (150-350) K/uL Neut % (Auto) 61.2 (45.0-80.0) % Lymph % (Auto) 21.8 (10.0-50.0) % [place] % (Auto) 11.0 (2.0-14.0) % Eos % (Auto) 5.6 H (0.0-5.0) % Baso % (Auto) 0.4 (0.0-2.0) % Neut # (Auto) 4.92 (1.40-7.00) K/uL Lymph # (Auto) 1.75 (0.50-3.50) K/uL [place] # (Auto) 0.88 (0.00-1.00) K/uL Eos # (Auto) 0.45 (0.00-0.50) K/uL Baso # (Auto) 0.03 (0.00-0.20) K/uL PT (9.5-12.0) SEC INR APTT (21.0-31.3) SEC D-Dimer, Quantitative (0-400) ng/mL Sodium 142 (136-145) mmol/L Potassium 4.5 (3.5-5.1) mmol/L Chloride 107 (98-107) mmol/L Carbon Dioxide 30.0 (21.0-32.0) mmol/L BUN 34 H (7-18) mg/dL Creatinine 1.09 (0.51-1.17) mg/dL Est Cr Clr Drug Dosing 35.75 mL/min Estimated GFR (MDRD) 49 mL/min Glucose 99 (74-106) mg/dL Hemoglobin A1c (4.3-5.7) % Lactic Acid (0.4-2.0) mmol/L Uric Acid (2.6-7.2) mg/dL Calcium 8.4 L (8.5-10.1) mg/dL Magnesium (1.8-2.4) mg/dL Iron (50-175) ug/dL TIBC (250-450) ug/dL % Saturation Ferritin (8-388) ng/mL Total Bilirubin 0.2 (0.2-1.0) mg/dL AST 32 (15-37) U/L ALT 36 (12-78) U/L Alkaline Phosphatase 94 (46-116) IU/L Creatine Kinase (26-308) U/L Creatine Kinase Index (0.0-2.5) % CK-MB (CK-2) (0.00-3.60) ng/mL Troponin I (0.000-0.056) ng/mL NT-Pro-B Natriuret Pep 110 (0-125) pg/mL Total Protein 7.5 (6.4-8.2) g/dL Albumin 3.1 L (3.4-5.0) g/dL Triglycerides (30-150) mg/dL Cholesterol (100-200) mg/dL LDL Cholesterol, Calc (0-100) mg/dL HDL Cholesterol (40-60) mg/dL Vitamin B12 (193-986) pg/mL TSH, Ultra Sensitive (0.358-3.740) mIU/mL GREG Results - Last 24 hrs: Microbiology 09/16/19 08:00 Helicobacter pylori Antigen - Final Stool / Feces Microbiology 09/16/19 08:00 Stool / Feces Helicobacter pylori Antigen - Final 09/16/19 08:00 Stool / Feces Stool Occult Blood (GREG) - Final NEGATIVE OCCULT BLOOD REFERENCE RANGE: NEGATIVE H. pylori stool antigen specimen was negative. Med Orders - Current: Current Medications Acetaminophen (Tylenol) 650 mg PO Q4H PRN PRN Reason: Pain Albuterol (Proventil Neb Soln) 2.5 mg NEB Q2H PRN PRN Reason: Dyspnea Albuterol/Ipratropium (Duoneb 3.0-0.5 Mg/3 Ml) 3 ml NEB Q4HRRT PRN PRN Reason: Dyspnea Last Admin: 09/16/19 21:29 Dose: 3 ml Benzonatate (Tessalon Perles) 100 mg PO Q8H PRN PRN Reason: Cough Last Admin: 09/17/19 22:36 Dose: 100 mg Budesonide (Pulmicort) 0.5 mg NEB BIDRT REJI Last Admin: 09/19/19 07:37 Dose: 0.5 mg Diltiazem HCl (Cardizem Cd) 180 mg PO BEDTIME [facility] [place] Last Admin: 09/18/19 20:04 Dose: 180 mg Furosemide (Lasix) 40 mg IVPUSH Q8H [facility] [place] Last Admin: 09/16/19 10:15 Dose: Not Given Guaifenesin/Dextromethorphan (Mucinex Dm Er 600-30 Mg) 1 tab PO BID [facility] [place] Last Admin: 09/19/19 07:37 Dose: 1 tab Losartan Potassium (Cozaar) 50 mg PO DAILY [facility] [place] Last Admin: 09/19/19 07:37 Dose: 50 mg Metoprolol Succinate (Toprol Xl) 25 mg PO DAILY [facility] [place] Last Admin: 09/19/19 07:36 Dose: 25 mg Omeprazole (Omeprazole) 20 mg PO DAILY [facility] [place] Last Admin: 09/19/19 07:37 Dose: 20 mg Potassium Chloride (Klor-Con M20) 20 meq PO BIDMEALS [facility] [place] Last Admin: 09/19/19 07:36 Dose: 20 meq Sodium Chloride (Saline Flush) 10 ml FLUSH ASDIRECTED PRN PRN Reason: Keep Vein Open Last Admin: 09/17/19 17:49 Dose: 10 ml Sodium Chloride (Saline Flush) 10 ml FLUSH Q12HR [facility] [place] Last Admin: 09/19/19 07:37 Dose: 10 ml Temazepam (Restoril) 15 mg PO BEDTIME PRN PRN Reason: Insomnia Warfarin Sodium (Coumadin) 5 mg PO DAILY@1800 [facility] [place] Last Admin: 09/18/19 17:19 Dose: 5 mg Discontinued Medications Albuterol/Ipratropium (Duoneb 3.0-0.5 Mg/3 Ml) 3 ml NEB Q6HRRT [facility] [place] Last Admin: 09/16/19 07:30 Dose: 3 ml Enoxaparin Sodium (Lovenox) 100 mg SUBCUT Q24H [facility] [place] Last Admin: 09/17/19 17:51 Dose: 100 mg Famotidine (Pepcid) 40 mg IVPUSH ONETIME ONE Stop: 09/15/19 14:00 Last Admin: 09/15/19 14:36 Dose: 40 mg Furosemide (Lasix) 40 mg IVPUSH BID@0800,1600 [facility] [place] Last Admin: 09/18/19 07:34 Dose: 40 mg Iopamidol (Isovue-370 (76%)) 100 ml IVPUSH ONETIME ONE Stop: 09/15/19 15:00 Last Admin: 09/15/19 15:33 Dose: 100 ml Methylprednisolone Sodium Succinate (Solu-Medrol) 125 mg IVPUSH ONETIME ONE Stop: 09/15/19 17:43 Last Admin: 09/15/19 19:32 Dose: 125 mg Metoprolol Tartrate (Lopressor) 2.5 mg IVPUSH ONETIME ONE Stop: 09/15/19 17:39 Last Admin: 09/15/19 18:39 Dose: 2.5 mg Potassium Chloride (Klor-Con M20) 20 meq PO TID REJI Last Admin: 09/16/19 07:30 Dose: 20 meq Sodium Chloride (Saline Flush) 10 ml FLUSH Q12HR PRN PRN Reason: Keep Vein Open Warfarin Sodium (Coumadin) 10 mg PO ONETIME ONE Stop: 09/15/19 17:33 Last Admin: 09/15/19 18:38 Dose: 10 mg Warfarin Sodium (Coumadin) 10 mg PO ONETIME ONE Stop: 09/16/19 10:07 Last Admin: 09/16/19 10:28 Dose: 10 mg Warfarin Sodium (Coumadin) 10 mg PO ONETIME ONE Stop: 09/17/19 09:00 Last Admin: 09/17/19 10:00 Dose: 10 mg - Exam Quality Assessment: Reports: Supplemental Oxygen, DVT Prophylaxis (Subcutaneous Lovenox and Coumadin). Denies: Central Line/PICC, Urine Catheter, Skin Breakdown, Restraints General: Reports: Alert, Oriented, Cooperative, No Acute Distress HEENT: Reports: Pupils Equal, Pupils Reactive, EOMI, Mucous Membr. Moist/Poth Neck: Reports: Supple, Trachea Midline, No JVD, No Thyromegaly, Carotid Bruit ( Moderate bilateral carotid bruits versus transmitted heart sounds). Denies: Lymphadenopathy, Thyromegaly Lungs: Reports: Normal Respiratory Effort, Rhonchi (Occasional bilateral). Denies: Rales, Rub, Wheezing Cardiovascular: Reports: Regular Rate (Very occasional extrasystole), Murmurs ( Stable 23/6 BETTYE of the aortic and mitral valves). Denies: No Murmurs, Gallops , Rubs GI/Abdominal Exam: Normal Bowel Sounds, Soft, Non-Tender, No Organomegaly, No Distention, No Abnormal Bruit, No Mass, Pelvis Stable, Other (Obese). No: Guarding (Female) Exam: Deferred Rectal (Female) Exam: Deferred Back Exam: Reports: Normal Inspection. Denies: CVA Tenderness (L), CVA Tenderness (R), Muscle Spasm Extremities: Normal Inspection, Normal Range of Motion, Non-Tender, No Pedal Edema, Normal Capillary Refill. No: Kerry's Sign Skin: Reports: Warm, Dry, Intact. Denies: Ecchymosis Neurological: Reports: No New Focal Deficit Psy/Mental Status: Reports: Alert, Normal Affect, Normal Mood. Denies: Agitated , Hallucinations, Withdrawal Symptoms
== END 2019-09-19 12:00 | disposition home or self-care (01) | DRG 292 ==
LOC: LL.ED 13:57 → LL.MS 16:35
PROVIDERS: ADMIT Family Medicine; ATTEND Family Medicine
DX: I11.0 Hypertensive heart disease with heart failure (principal); I82.411 Acute embolism and thrombosis of right femoral vein; I82.409 Acute embolism and thrombosis of unspecified deep veins of unspecified lower extremity; I50.9 Heart failure, unspecified; R79.89 Other specified abnormal findings of blood chemistry; R91.1 Solitary pulmonary nodule; I49.1 Atrial premature depolarization; R01.1 Cardiac murmur, unspecified; J45.909 Unspecified asthma, uncomplicated; E78.5 Hyperlipidemia, unspecified; K21.9 Gastro-esophageal reflux disease without esophagitis; I08.0 Rheumatic disorders of both mitral and aortic valves; N28.9 Disorder of kidney and ureter, unspecified; E88.09 Other disorders of plasma-protein metabolism, not elsewhere classified; D50.9 Iron deficiency anemia, unspecified; E83.51 Hypocalcemia; H91.90 Unspecified hearing loss, unspecified ear; H54.7 Unspecified visual loss; E78.00 Pure hypercholesterolemia, unspecified; E66.9 Obesity, unspecified; J44.9 Chronic obstructive pulmonary disease, unspecified; M85.80 Other specified disorders of bone density and structure, unspecified site; K59.09 Other constipation; K44.9 Diaphragmatic hernia without obstruction or gangrene; Z68.36 Body mass index [BMI] 36.0-36.9, adult; G89.29 Other chronic pain; M54.9 Dorsalgia, unspecified; Z79.899 Other long term (current) drug therapy; M54.2 Cervicalgia; Z90.49 Acquired absence of other specified parts of digestive tract; M81.0 Age-related osteoporosis without current pathological fracture; Z96.659 Presence of unspecified artificial knee joint; M15.0 Primary generalized (osteo)arthritis; Z79.01 Long term (current) use of anticoagulants; Z88.1 Allergy status to other antibiotic agents; Z88.8 Allergy status to other drugs, medicaments and biological substances; Z86.010 Personal history of colon polyps; Z87.442 Personal history of urinary calculi; Z85.038 Personal history of other malignant neoplasm of large intestine; Z85.528 Personal history of other malignant neoplasm of kidney; Z98.42 Cataract extraction status, left eye; Z98.41 Cataract extraction status, right eye
CPT/HCPCS: 36415; 71045; 71275; 80053; 82550 ×2; 82553 ×2; 83605; 83735; 83880; 84443; 84484 ×2; 84550; 85025; 85379; 85610; 85730; 93005; 93970; 96374; 99285; J3490; Q9967; 71046; 80048; 80061; 82272; 82607; 82728; 83036; 83540; 83550; 87338; 94640; A9270-GY; J1650; J1940; J2930; J7620-GY

== ENCOUNTER 2021-10-11 23:39 | Emergency (ER) | payer MEDICARE, OTHER ==
[2021-10-12] MEDS: Morphine 2 MG/ML SYRINGE IVPUSH ONE (00:34)
[2021-10-12 00:48] LABS: CHLORIDE,CL 108 mmol/L (98-107); SODIUM,NA 144 mmol/L (136-145)
[2021-10-12 00:49] LABS: ANION GAP 11.4 meq/L (7-15)
[2021-10-12] MEDS: Ondansetron 4 MG/2 ML SDV IVPUSH PRN (01:00)
[2021-10-12] MEDS: cefTRIAXone 1 GM in Sodium Chloride 0.9% 100 ML IV SCH (01:30)
[2021-10-12] MEDS: Lactated Ringers 1,000 ML IV ONE (02:00)
[2021-10-12 05:16] VITALS: PULSE 63
[2021-10-12 05:17] VITALS: BP 137/65
== END 2021-10-12 03:01 | disposition home or self-care (01) ==
LOC: LL.ED 23:39
DX: N30.00 Acute cystitis without hematuria (principal); E78.00 Pure hypercholesterolemia, unspecified; I10 Essential (primary) hypertension; J44.9 Chronic obstructive pulmonary disease, unspecified; E66.9 Obesity, unspecified; Z68.30 Body mass index [BMI] 30.0-30.9, adult; Z88.0 Allergy status to penicillin; Z79.899 Other long term (current) drug therapy; Z79.01 Long term (current) use of anticoagulants
CPT/HCPCS: 36415; 74176; 80053; 81001; 83605; 85025; 86140; 87086; 87088; 87186; 96365; 96375; 99284; 99284-25; J0696; J2270; J2405; J7120